=== PATIENT | female | born 1985 | race Caucasian/White ===

== ENCOUNTER 2017-06-16 16:45 | Emergency (ER) | payer MEDICAID | END 2017-06-16 17:20 | disposition home or self-care (01) | LOC: HOBED 16:45 | DX: Z34.90 Encounter for supervision of normal pregnancy, unspecified, unspecified trimester (principal) | CPT/HCPCS: 99281 ==

== ENCOUNTER 2017-09-26 02:40 | Inpatient (IN) | payer MEDICAID ==
[~2017-09-26] VITALS: Ht 175.3 cm; Wt 158.0 kg
[2017-09-26 03:09] VITALS: BP 131/61; PULSE 86; RESP 18; TEMP 98.9; O2SAT 98
[2017-09-26 08:14] LABS: AUTOMATED NEUTROPHIL # 9.9 TH/MM3 (1.8-7.7); BASOPHIL % 0.3 % (0.0-2.0); EOSINOPHIL # 0.1 TH/MM3 (0-0.4); EOSINOPHIL % 0.5 % (0.0-4.0); LYMPH % 13.7 % (9.0-44.0); LYMPHOCYTE # 1.7 TH/MM3 (1.0-4.8); MEAN CELL VOLUME 86.3 FL (80.0-100.0); MEAN CORPUSCULAR HEMOGLOBIN 29.6 PG (27.0-34.0); MEAN CORPUSCULAR HGB CONC 34.3 % (32.0-36.0); MEAN PLATELET VOLUME 8.3 FL (7.0-11.0); MONOCYTE # 0.9 TH/MM3 (0-0.9); NEUT % 78.5 % (16.0-70.0); PLATELET COUNT 305 TH/MM3 (150-450); RED BLOOD COUNT 3.71 MIL/MM3 (4.00-5.30); RED CELL DISTRIBUTION WIDTH 13.4 % (11.6-17.2); WHITE BLOOD COUNT 12.6 TH/MM3 (4.0-11.0)
[2017-09-26 08:37] LABS: BILIRUBIN, URINE NEG (NEG); BLOOD, URINE NEG (NEG); GLUCOSE,URINE NEG (NEG); KETONE, URINE NEG (NEG); MUCUS URINE FEW /lpf (OCC); NITRITE,URINE NEG (NEG); SQUAMOUS EPITHELIAL CELL URINE 2 /hpf (0-5); URINE COLOR YELLOW (YELLW/STRAW); URINE LEUKOCYTE ESTERASE TRACE (NEG)
[2017-09-26 08:38] LABS: BICARBONATE 23.9 MEQ/L (21.0-32.0); CREATININE 0.57 MG/DL (0.50-1.00)
--- NOTE | 2017-09-26 09:13 | PD ---
HPI Chief Complaint: Skin Problem Time Seen by Provider: 08:58 Travel History International Travel<30 days: No Contact w/Intl Traveler<30days: No Traveled to known affect area: No History of Present Illness HPI 31 y/o female presents with fever, chills and lower abdominal pain since her C- section on September 15 that when he [facility]. 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 She states this was her third and she's had one prior miscarriage and one . She denies any other specific concurrent complaints. Quality pain is cramping. Severity is moderate. She denies specific modifying factors. She denies any other concurrent complaints. Patient is breast-feeding [facility] Past Medical History Medical History: Denies Significant Hx Diminished Hearing: No Tetanus Vaccination: Unknown Influenza Vaccination: No ?: Not LMP: postpatum Past Surgical History Section: Yes (x2) Tonsillectomy: Yes (T&A) Social History Alcohol Use: Yes (occasionally) Tobacco Use: No Substance Use: No Allergies-Medications (Allergen,Severity, Reaction): Coded Allergies: No Known Allergies (Unverified , 09/26/17) Reported Meds & Prescriptions Reported Meds & Active Scripts Active No Active Prescriptions or Reported Medications Review of Systems Except as stated in HPI: all other systems reviewed are Neg Physical Exam Narrative GENERAL: 31 y/o female in no apparent distress SKIN: Patient has redness with associated warmth and swelling across her low transverse abdominal scar without active drainage HEAD: Atraumatic. Normocephalic. EYES: Pupils equal and round. No scleral icterus. No injection or drainage. ENT: No nasal bleeding or discharge. Mucous membranes pink and moist. NECK: Trachea midline. No JVD. CARDIOVASCULAR: Regular rate and rhythm. RESPIRATORY: No accessory muscle use. Clear to auscultation. Breath sounds equal bilaterally. GASTROINTESTINAL: Abdomen soft, tender over suprapubic area, nondistended. No rebound MUSCULOSKELETAL: No obvious deformities. No clubbing. No cyanosis. NEUROLOGICAL: Awake and alert. No obvious cranial nerve deficits. Motor grossly within normal limits. Normal speech. PSYCHIATRIC: Appropriate mood and affect; insight and judgment normal. Data Data Last Documented VS Vital Signs Date Time Temp Pulse Resp B/P (MAP) Pulse Ox O2 Delivery O2 Flow Rate FiO2 09/26/17 09:16 98.7 74 17 133/63 (86) 99 Room Air Orders Orders Complete Blood Count With Diff (09/26/17 07:25) Basic Metabolic Panel (Bmp) (09/26/17 07:25) Urinalysis - C+S If Indicated (09/26/17 07:25) Ct Abd/Pel W Iv Contrast(Rout) (09/26/17 ) Iohexol 350 Inj (Omnipaque 350 Inj) (09/26/17 10:16) Lidocai-Epi 1%-1:100,000 Inj (Xylocaine- (09/26/17 12:06) Admit Order (Ed Use Only) (09/26/17 12:07) Clindamycin Inj (Cleocin Inj) (09/26/17 12:15) Labs Laboratory Tests Test 09/26/17 07:51 09/26/17 08:08 White Blood Count 12.6 TH/MM3 Red Blood Count 3.71 MIL/MM3 Hemoglobin 11.0 GM/DL Hematocrit 32.0 % Mean Corpuscular Volume 86.3 FL Mean Corpuscular Hemoglobin 29.6 PG Mean Corpuscular Hemoglobin Concent 34.3 % Red Cell Distribution Width 13.4 % Platelet Count 305 TH/MM3 Mean Platelet Volume 8.3 FL Neutrophils (%) (Auto) 78.5 % Lymphocytes (%) (Auto) 13.7 % Monocytes (%) (Auto) 7.0 % Eosinophils (%) (Auto) 0.5 % Basophils (%) (Auto) 0.3 % Neutrophils # (Auto) 9.9 TH/MM3 Lymphocytes # (Auto) 1.7 TH/MM3 Monocytes # (Auto) 0.9 TH/MM3 Eosinophils # (Auto) 0.1 TH/MM3 Basophils # (Auto) 0.0 TH/MM3 CBC Comment DIFF FINAL Differential Comment Blood Urea Nitrogen 5 MG/DL Creatinine 0.57 MG/DL Random Glucose 91 MG/DL Calcium Level 9.0 MG/DL Sodium Level 140 MEQ/L Potassium Level 3.5 MEQ/L Chloride Level 107 MEQ/L Carbon Dioxide Level 23.9 MEQ/L Anion Gap 9 MEQ/L Estimat Glomerular Filtration Rate 123 ML/MIN Urine Color YELLOW Urine Turbidity CLEAR Urine pH 6.0 Urine Specific [place] 1.010 Urine Protein NEG mg/dL Urine Glucose (UA) NEG mg/dL Urine Ketones NEG mg/dL Urine Occult Blood NEG Urine Nitrite NEG Urine Bilirubin NEG Urine Urobilinogen 2.0 MG/DL Urine Leukocyte Esterase TRACE Urine WBC LESS THAN 1 /hpf Urine Squamous Epithelial Cells 2 /hpf Urine Mucus FEW /lpf Microscopic Urinalysis Comment CULT NOT INDICATED MDM Medical Decision Making Medical Screen Exam Complete: Yes Emergency Medical Condition: Yes Medical Record Reviewed: Yes (past history confirmed) Interpretation(s) CBC & BMP Diagram 09/26/17 07:51 Calcium Level 9.0 Last 24 hours Impressions Abdomen/Pelvis CT 09/26/17 0000 Signed Impressions: Service Date/Time: Tuesday, September 26, 2017 10:12 - CONCLUSION: 1. 19.6 x 5.7 x 6.2 cm fluid collection in the deep subcutaneous tissues of the lower abdomen. Findings could represent postoperative seroma or abscess. 2. Prominent endometrial stripe likely related to the recent state. CT findings characteristic of bilateral sacroiliitis. Jose Hagen MD Differential Diagnosis Abscess, cellulitis, wound check Narrative Course Will add on CT abdomen pelvis after discussion with OB hospitalist and reevaluate will discuss ct with ob patient agrees to bedside drainage and admission to hospital Physician Communication Physician Communication dr kang states to check CT and if has large abscess will need to be opened up if there is small or just cellulitis can likely go home on antibiotics dr rae will come see patient dr rae will drain at bedside and states to admit to her service, ok with clindamycin Diagnosis Primary Impression: Abdominal wall abscess Additional Impression: Status post Admitting Information Admitting Physician Requests: Admit Scripts No Active Prescriptions or Reported Meds Mela Ram MD Sep 26, 2017 09:13
[2017-09-26 09:16] VITALS: BP 133/63; PULSE 74; RESP 17; TEMP 98.7; O2SAT 99
[2017-09-26] MEDS ORDERED: IOHEXOL 350 MG/ML 10 ML VIAL (for RAD DIAG) IVCONTRAST ONE (10:16)
--- NOTE | 2017-09-26 10:34 | RADRPT ---
EXAM DATE/TIME: 09/26/2017 10:12 [place] COMPARISON: No previous studies available for comparison. INDICATIONS : Fever, swelling and clear discharge at suture site. section September 15, evaluate for abscess . IV CONTRAST: 75 cc Omnipaque 350 (iohexol) IV ORAL CONTRAST: No oral contrast ingested. RADIATION DOSE: 22.66 CTDIvol (mGy) ; Patient body habitus MEDICAL HISTORY : None SURGICAL HISTORY : section. ENCOUNTER: Initial ACUITY: 2 weeks PAIN SCALE: 7/10 LOCATION: Abdomen. TECHNIQUE: Volumetric scanning of the abdomen and pelvis was performed. Using automated exposure control and ad justment of the mA and/or kV according to patient size, radiation dose was kept as low as reasonably achievable to obtain optimal diagnostic quality images. DICOM format image data is available electro nically for review and comparison. FINDINGS: LOWER LUNGS: The visualized lower lungs are clear. LIVER: Homogeneous density without lesion. There is no dilation of the biliary tree. No calcified gallston es. SPLEEN: Normal size without lesion. PANCREAS: Within normal limits. KIDNEYS: Normal in size and shape. There is no mass, stone or hydronephrosis. ADRENAL GLANDS: Within normal limits. VASCULAR: There is no aortic aneurysm. BOWEL/MESENTERY: The stomach, small bowel, and colon demonstrate no acute abnormality. There is no free intraperitone al air or fluid. ABDOMINAL WALL: In the expected location of the patient's incision, there is a 19.6 x 5.7 x 6.2 cm fluid collection i n the subcutaneous tissues. This could represent seroma or abscess. RETROPERITONEUM: There is no lymphadenopathy. BLADDER: No wall thickening or mass. REPRODUCTIVE: Prominent endometrial stripe is likely limited to the recent state. INGUINAL: There is no lymphadenopathy or hernia. MUSCULOSKELETAL: Some degenerative changes in the lumbar spine with facet hypertrophy in the lower levels and lumbosac ral junction. Vacuum joint phenomenon in the SI joints bilaterally with SI joint sclerosis characteri stic of bilateral sacroiliitis. CONCLUSION: 1. 19.6 x 5.7 x 6.2 cm fluid collection in the deep subcutaneous tissues of the lower abdomen. Findin gs could represent postoperative seroma or abscess. 2. Prominent endometrial stripe likely related to the recent state. CT findings characteri stic of bilateral sacroiliitis. Jose Hagen MD on September 26, 2017 at 10:22 Board Certified Radiologist. This report was verified electronically.
[2017-09-26] MEDS ORDERED: LIDOCAINE 1%/EPINEPHrine 1:100,000 SOLN 30 ML VIAL ONE ×2 (12:06→16:06)
[2017-09-26] MEDS ORDERED: CLINDAMYCIN INJ 600 MG in SODIUM CHLORIDE 0.9% INJ 100 ML IV ONE (12:15)
[2017-09-26] MEDS ORDERED: ACETAMINOPHEN 325 MG TAB PO ONE (12:45)
[2017-09-26 12:50] VITALS: BP 141/67; PULSE 67; RESP 17; O2SAT 98
[2017-09-26] MEDS ORDERED: ONDANSETRON HCL 4 MG/2 ML VIAL IV PUSH ONE (13:00)
[2017-09-26] MEDS ORDERED: MORPHINE SULFATE 4 MG/ML INJ IV PUSH ONE (13:00)
--- NOTE | 2017-09-26 13:22 | HHI.HP ---
HPI Chief Complaint abdominal pain Date Seen: Sep 26, 2017 Time Seen: 12:30 Travel History International Travel<30 Days: No Contact w/Intl Traveler<30Days: No Known Affected Area: No History of Present Illness HPI Mrs. Correa is 31-year-old presenting to the ED ED today due to abdominal pain and fever. She gave to her son on 09/15 by at [facility] in [place]. She was discharged home on 09/17. She states that all was well until yesterday when she woke up with fever and chills. She did not take her temperature. However, she took some ibuprofen. She has also been having headaches since yesterday. Her surgical incision has also been painful. Is more painful on the left side. History Past Medical History Medical History: Denies Significant Hx Obstetric History Obstetric History 16 month old girl, delivery for breech presentation Past Surgical History Narrative Surgical 2 C-sections Tonsillectomy Allergies-Medications (Allergen,Severity, Reaction): Coded Allergies: No Known Allergies (Unverified , 09/26/17) Home Meds No Active Prescriptions or Reported Meds Review of Systems General / Constitutional: Fever, Chills Eyes: No: Blurred Vision HENT: Headaches Cardiovascular: No: Chest Pain or Discomfort Respiratory: No: Short of Breath Gastrointestinal: Nausea, Abdominal Pain, No: Vomiting Physical Exam Vital Signs Date Time Temp Pulse Resp B/P (MAP) Pulse Ox O2 Delivery O2 Flow Rate FiO2 09/26/17 12:50 67 17 141/67 (91) 98 Room Air 09/26/17 09:16 98.7 74 17 133/63 (86) 99 Room Air 09/26/17 03:09 98.9 86 18 131/61 (84) 98 Narrative GENERAL: Well-nourished, well-developed patient. SKIN: Warm and dry. HEAD: Normocephalic and atraumatic. EYES: No scleral icterus. No injection or drainage. CARDIOVASCULAR: Regular rate and rhythm without murmurs, gallops, or rubs. RESPIRATORY: Breath sounds equal bilaterally. No accessory muscle use. ABDOMEN/GI: Abdomen soft, tender at left lateral aspect of surgical incision. Right lateral aspect of incision open 0.5cm and draining serosanguineous foul smelling fluid. Mons pubis is erythematous, edematous, and indurated. EXTREMITIES: No cyanosis or edema. NEUROLOGICAL: Awake and alert. Motor and sensory grossly within normal limits. Normal speech. Caprini VTE Risk Assessment Caprini VTE Risk Assessment: Mod/High Risk (score >= 2) Caprini Risk Assessment Model Point Value = 1 Point Value = 2 Point Value = 3 Point Value = 5 Age 41-60 Minor surgery BMI > 25 kg/m2 Swollen legs Varicose veins or History of unexplained or recurrent spontaneous Oral contraceptives or hormone replacement Sepsis (< 1 month) Serious lung disease, including pneumonia (< 1 month) Abnormal pulmonary function Acute myocardial infarction Congestive heart failure (< 1 month) History of inflammatory bowel disease Medical patient at bed rest Age 61-74 Arthroscopic surgery Major open surgery (> 45 min) Laparoscopic surgery (> 45 min) Malignancy Confined to bed (> 72 hours) Immobilizing plaster cast Central venous access Age >= 75 History of VTE Family history of VTE Factor V Leiden Prothrombin [id number] Lupus anticoagulant Anticardiolipin antibodies Elevated serum homocysteine Heparin-induced thrombocytopenia Other congenital or acquired thrombophilia Stroke (< 1 month) Elective arthroplasty Hip, pelvis, or leg fracture Acute spinal cord injury (< 1 month) Prophylaxis Regimen Total Risk Factor Score Risk Level Prophylaxis Regimen 0-1 Low Early ambulation 2 Moderate Order ONE of the following: *Sequential Compression Device (SCD) *Heparin 5000 units SQ BID 3-4 Higher Order ONE of the following medications: *Heparin 5000 units SQ TID *Enoxaparin/Lovenox 40 mg SQ daily (WT < 150 kg, CrCl > 30 mL/min) *Enoxaparin/Lovenox 30 mg SQ daily (WT < 150 kg, CrCl > 10-29 mL/min) *Enoxaparin/Lovenox 30 mg SQ BID (WT < 150 kg, CrCl > 30 mL/min) AND/OR *Sequential Compression Device (SCD) 5 or more Highest Order ONE of the following medications: *Heparin 5000 units SQ TID (Preferred with Epidurals) *Enoxaparin/Lovenox 40 mg SQ daily (WT < 150 kg, CrCl > 30 mL/min) *Enoxaparin/Lovenox 30 mg SQ daily (WT < 150 kg, CrCl > 10-29 mL/min) *Enoxaparin/Lovenox 30 mg SQ BID (WT < 150 kg, CrCl > 30 mL/min) AND *Sequential Compression Device (SCD) Data Data Vital Signs Reviewed: Yes Orders Orders Complete Blood Count With Diff (09/26/17 07:25) Basic Metabolic Panel (Bmp) (09/26/17 07:25) Urinalysis - C+S If Indicated (09/26/17 07:25) Ct Abd/Pel W Iv Contrast(Rout) (09/26/17 ) Iohexol 350 Inj (Omnipaque 350 Inj) (09/26/17 10:16) Lidocai-Epi 1%-1:100,000 Inj (Xylocaine- (09/26/17 12:06) Admit Order (Ed Use Only) (09/26/17 12:07) Clindamycin Inj (Cleocin Inj) (09/26/17 12:15) Morphine Inj (Morphine Inj) (09/26/17 13:00) Ondansetron Inj (Zofran Inj) (09/26/17 13:00) Acetaminophen (Tylenol) (09/26/17 12:45) Wound Culture And Gram Stain (09/26/17 12:51) Labs Laboratory Tests Test 09/26/17 07:51 09/26/17 08:08 White Blood Count 12.6 Red Blood Count 3.71 Hemoglobin 11.0 Hematocrit 32.0 Mean Corpuscular Volume 86.3 Mean Corpuscular Hemoglobin 29.6 Mean Corpuscular Hemoglobin Concent 34.3 Red Cell Distribution Width 13.4 Platelet Count 305 Mean Platelet Volume 8.3 Neutrophils (%) (Auto) 78.5 Lymphocytes (%) (Auto) 13.7 Monocytes (%) (Auto) 7.0 Eosinophils (%) (Auto) 0.5 Basophils (%) (Auto) 0.3 Neutrophils # (Auto) 9.9 Lymphocytes # (Auto) 1.7 Monocytes # (Auto) 0.9 Eosinophils # (Auto) 0.1 Basophils # (Auto) 0.0 CBC Comment DIFF FINAL Differential Comment Blood Urea Nitrogen 5 Creatinine 0.57 Random Glucose 91 Calcium Level 9.0 Sodium Level 140 Potassium Level 3.5 Chloride Level 107 Carbon Dioxide Level 23.9 Anion Gap 9 Estimat Glomerular Filtration Rate 123 Urine Color YELLOW Urine Turbidity CLEAR Urine pH 6.0 Urine Specific [place] 1.010 Urine Protein NEG Urine Glucose (UA) NEG Urine Ketones NEG Urine Occult Blood NEG Urine Nitrite NEG Urine Bilirubin NEG Urine Urobilinogen 2.0 Urine Leukocyte Esterase TRACE Urine WBC LESS THAN 1 Urine Squamous Epithelial Cells 2 Urine Mucus FEW Microscopic Urinalysis Comment CULT NOT INDICATED Assessment/Plan Problem List: (1) Abdominal wall abscess ICD Codes: L02.211 - Cutaneous abscess of abdominal wall Status: Acute Plan: 31yo who is POD 10 from repeat C/S at [facility] in [place], [place]. CBC shows leukocytosis to 12.6. CT abdomen/pelvis shows 19.6x5.7x6.2cm fluid collection in the deep subcutaneous tissues of the lower abdomen. I&D conducted at the bedside showed an extensive abscess draining serosanguineous fluid and pus once incision was opened. (See Dr. Zazueta's procedure note) -Due to the size of the abscess it was originally decided to finish the I&D in the OR. However, upon examination 3 hours later the wound was improved. A second opinion was obtained with Dr. Mejia and it was decided that the wound will be repacked overnight q4h. -One dose of Clindamycin given in the ED -Will start broad spectrum coverage with Vancomycin and Zosyn 3.375gm q6h -Pharmacy consult for Vancomycin dosing -Blood cultures pending, were drawn after Clindamycin was given -Wound culture pending from bedside I&D -Will order AM CBC, CMP (2) FEN Status: Acute Plan: Fluids: LR @ maintenance of 200mls/hr Electrolytes: Monitor and replete as needed Nutrition: NPO DVT prophylaxis: Megan Orozco MD R1 Sep 26, 2017 13:22
[2017-09-26] MEDS ORDERED: Vancomycin Consult Pharmacy 1 EA OTHER SCH (15:00)
[2017-09-26] MEDS: PIPERACIL-TAZO 3.375 GM PREMIX 50 ML IV SCH ×2 (15:45→23:43)
[2017-09-26 16:59] VITALS: BP 117/74; PULSE 73; RESP 17; O2SAT 97
[2017-09-26] MEDS ORDERED: VANCOMYCIN INJ 2,000 MG in SODIUM CHLORID 0.9% 500 ML INJ 500 ML IV SCH (17:00)
--- NOTE | 2017-09-26 17:03 | HHI.PR ---
Subjective Remarks Progress Note from 1pm, draft was inadvertently not saved. The patient is a y/o P2 POD#11 s/p repeat C/S on 09/15/17. She presented to the ED with 1-2 days of not feeling well and drainage from the incision. The CT showed a large subcutaneous fluid collection. The patient was informed of the need to drain and explore the wound. We discussed possible drainage at the bedside versus surgical incision and drainage. The patient stated she preferred to avoid surgery if possible. We discussed the risks of bedside drainage, including but not limited to pain, infection, bleeding, injury to other organs or the fascia, failure to complete procedure, and need for further surgical exploration. On physical examination the surgical site is indurated with some erythema noted. The wound appeared to be approximately 2 cm open. The skin was prepped and draped with Betadine and approximately 2 cc of 1% lidocaine with 1% epinephrine was injected at the skin edges. The skin edges of the incision were opened with small scissors. Copious fluid extruded from the wound and the subcutaneous tissue was opened. The fascia palpated to be intact and without dehiscence. There was a copious amount of fluid that drained and infected appearing tissue was noted on the wound edges, so the recommendation was made to proceed with further surgical exploration. In the meantime, the wound was packed with dry Kerlix to further absorb infectious fluid. IV antibiotics were ordered and the patient will be admitted to our service. The patient was tentatively scheduled as an add-on procedure. All of her questions were answered. Objective Vital Signs Date Time Temp Pulse Resp B/P (MAP) Pulse Ox O2 Delivery O2 Flow Rate FiO2 09/26/17 14:46 16 09/26/17 14:46 16 09/26/17 12:50 67 17 141/67 (91) 98 Room Air 09/26/17 09:16 98.7 74 17 133/63 (86) 99 Room Air 09/26/17 03:09 98.9 86 18 131/61 (84) 98 I/O 09/25/17 09/25/17 09/25/17 09/26/17 09/26/17 09/26/17 07:00 15:00 23:00 07:00 15:00 23:00 Intake Total 104 ml Balance 104 ml Intake IV Total 104 ml Result Diagram: 09/26/17 0751 09/26/17 0751 Jen Zazueta MD Sep 26, 2017 17:03
[2017-09-26] MEDS ORDERED: SILVER NITR/POTASSIUM NITRATE APPLICATORS TOPICAL ONE (17:45)
--- NOTE | 2017-09-26 18:41 | HHI.PR ---
Subjective Remarks The patient is a y/o P2 POD #11 s/p repeat C/S on 09/15/17. She presented to the ED with 1-2 days of not feeling well and drainage from the incision. The CT showed a large subcutaneous fluid collection. The wound was explored and drained at the bedside however due to limited visibility and the extent/depth of the incision, the recommendation had been made to explore further in the operating room. Upon removal of the previously placed Kerlix, better visualization was obtained and the wound was able to be adequately visualized. The fascia was re-examined and noted to be without defect or dehiscence. The patient again stated her desire to avoid surgery if possible. The wound was repacked and subsequently reexamined with Dr. Wilder and there appears to be a good blood supply to the underlying tissue and does not appear to be evidence of necrotizing fasciitis at this time. The wound was repacked and will proceed with observation overnight, wound care, IV antibiotics, and an infectious disease and wound care consult in the a.m. The patient may be a candidate for a wound VAC. Objective Vital Signs Date Time Temp Pulse Resp B/P (MAP) Pulse Ox O2 Delivery O2 Flow Rate FiO2 09/26/17 17:20 09/26/17 16:59 73 17 117/74 (88) 97 Room Air 09/26/17 14:46 16 09/26/17 14:46 16 09/26/17 12:50 67 17 141/67 (91) 98 Room Air 09/26/17 09:16 98.7 74 17 133/63 (86) 99 Room Air 09/26/17 03:09 98.9 86 18 131/61 (84) 98 I/O 09/25/17 09/25/17 09/25/17 09/26/17 09/26/17 09/26/17 07:00 15:00 23:00 07:00 15:00 23:00 Intake Total 104 ml 50 ml Balance 104 ml 50 ml Intake IV Total 104 ml 50 ml Result Diagram: 09/26/17 0751 09/26/17 0751 Jen Zazueta MD Sep 26, 2017 18:41
[2017-09-26 20:00] VITALS: BP 110/53; PULSE 63; RESP 16; TEMP 98; O2SAT 98
[2017-09-26] MEDS: LACTATED RINGER'S 1000 ML INJ 1,000 ML IV SCH (20:05)
[2017-09-26] MEDS: MORPHINE SULFATE 4 MG/ML INJ IV PUSH PRN ×2 (20:05→22:28)
--- NOTE | 2017-09-26 23:11 | HHI.PR ---
Subjective Remarks The patient is a y/o P2 POD#11 s/p repeat C/S on 09/15/17. She presented to the ED with 1-2 days not feeling well and drainage from the incision. CT showed a large subcutaneous fluid collection which was drained and the wound explored and packed. The patient stated she prefers to avoid surgery if possible. The patient is given informed milligrams of morphine and the wound unpacked there appears to be less necrotic tissue than previous and the wound appears to have less moisture than prior. The wound was repacked which the patient tolerated well. We'll continue close observation and wound care. Objective Vital Signs Date Time Temp Pulse Resp B/P (MAP) Pulse Ox O2 Delivery O2 Flow Rate FiO2 09/26/17 20:00 98.0 63 16 110/53 (72) 98 09/26/17 18:45 09/26/17 16:59 73 17 117/74 (88) 97 Room Air 09/26/17 14:46 16 09/26/17 14:46 16 09/26/17 12:50 67 17 141/67 (91) 98 Room Air 09/26/17 09:16 98.7 74 17 133/63 (86) 99 Room Air 09/26/17 03:09 98.9 86 18 131/61 (84) 98 I/O 09/26/17 09/26/17 09/26/17 09/27/17 09/27/17 09/27/17 07:00 15:00 23:00 07:00 15:00 23:00 Intake Total 104 ml 50 ml Balance 104 ml 50 ml Intake IV Total 104 ml 50 ml Result Diagram: 09/26/17 0751 09/26/17 0751 Jen Zazueta MD Sep 26, 2017 23:11
[2017-09-26] MEDS ORDERED: hydrOXYzine PAMOATE 25 MG CAP PO PRN (23:45)
[2017-09-26] MEDS ORDERED: ZOLPIDEM TARTRATE 5 MG TAB PO PRN (23:45)
[2017-09-27] VITALS: BP 119/58; PULSE 62; RESP 16; TEMP 98.2; O2SAT 97
[2017-09-27] MEDS: MORPHINE SULFATE 4 MG/ML INJ IV PUSH PRN ×3 (02:14→15:00)
[2017-09-27] MEDS: LACTATED RINGER'S 1000 ML INJ 1,000 ML IV SCH ×3 (03:25→22:34)
[2017-09-27] MEDS: oxyCODONE/ACETAMINOPHEN 5 MG/325 MG TAB PO PRN ×2 (03:25→16:32)
[2017-09-27] MEDS: ONDANSETRON HCL 4 MG/2 ML VIAL IV PUSH PRN ×2 (03:25→17:57)
[2017-09-27 03:30] VITALS: BP 124/62; PULSE 61; RESP 18; TEMP 98.3; O2SAT 97
[2017-09-27] MEDS: PIPERACIL-TAZO 3.375 GM PREMIX 50 ML IV SCH ×3 (05:53→17:52)
[2017-09-27 06:00] LABS: AUTOMATED NEUTROPHIL # 5.6 TH/MM3 (1.8-7.7); BASOPHIL # 0.1 TH/MM3 (0-0.2); BASOPHIL % 0.6 % (0.0-2.0); EOSINOPHIL # 0.2 TH/MM3 (0-0.4); EOSINOPHIL % 2.6 % (0.0-4.0); HEMATOCRIT 27.9 % (35.0-46.0); HEMOGLOBIN 9.5 GM/DL (11.6-15.3); LYMPHOCYTE # 2.5 TH/MM3 (1.0-4.8); MEAN CELL VOLUME 87.4 FL (80.0-100.0); MEAN CORPUSCULAR HEMOGLOBIN 29.7 PG (27.0-34.0); MEAN PLATELET VOLUME 8.9 FL (7.0-11.0); MONO % 9.2 % (0.0-8.0); MONOCYTE # 0.9 TH/MM3 (0-0.9); NEUT % 60.6 % (16.0-70.0); PLATELET COUNT 270 TH/MM3 (150-450); RED BLOOD COUNT 3.19 MIL/MM3 (4.00-5.30); RED CELL DISTRIBUTION WIDTH 13.3 % (11.6-17.2); WHITE BLOOD COUNT 9.2 TH/MM3 (4.0-11.0)
[2017-09-27 06:24] LABS: ALBUMIN 2.3 GM/DL (3.4-5.0); ALKALINE PHOSPHATASE 83 U/L (45-117); ALT (GPT) 14 U/L (10-53); AST (GOT) 6 U/L (15-37); BICARBONATE 25.2 MEQ/L (21.0-32.0); BLOOD UREA NITROGEN 7 MG/DL (7-18); CHLORIDE 108 MEQ/L (98-107); CREATININE 0.65 MG/DL (0.50-1.00); GLOMERULAR FILTRATION RATE 106 ML/MIN (>89); GLUCOSE,RANDOM 80 MG/DL (74-106); SODIUM (NA) 142 MEQ/L (136-145); TOTAL BILIRUBIN ADULT 0.4 MG/DL (0.2-1.0)
[2017-09-27 08:53] VITALS: BP 95/50; PULSE 64; RESP 18; TEMP 98; O2SAT 98
--- NOTE | 2017-09-27 09:14 | HHI.FF ---
Face to Face Verification Diagnosis: (1) Abdominal wall abscess (2) Status post Home Health Nursing Order: Medical education Signs/symptoms of disease process Medication education-adverse effect Wound care and dressing changes Nursing assessment with vital signs IV medication administration Instructions: Patient requires a wound vac at home with dressing changes three times a week on Mondays, Wednesdays, and Fridays. I have seen patient Hailey Correa on 09/27/17. My clinical findings support the need for the requested home health care services because: Ltd mobility - disease progression Limited ability to care for self Need for psychosocial assistance Infection w/ risk of complications Injectable med education/admin I certify that my clinical findings support that this patient is homebound because: Unsafe to leave home unassisted Need for psychosocial assistance Unable to use public transportation 3 times a week for 6 weeks Ara Goldstein MD Sep 27, 2017 09:14 Megan Martinez MD R1 Sep 28, 2017 12:12
--- NOTE | 2017-09-27 09:21 | HHI.PR ---
Subjective Remarks Patient is doing well this morning. She feels pain at her wound site but is well -controlled with medication. No fevers or chills overnight. Denies chest pain or shortness of breath. She ate without issues the previous day but had not eaten this morning because she was NPO. Objective - Vital Signs Date Time Temp Pulse Resp B/P (MAP) Pulse Ox O2 Delivery O2 Flow Rate FiO2 09/27/17 08:53 98.0 64 18 95/50 (65) 98 09/26/17 16:59 Room Air Result Diagram: 09/27/17 0450 09/27/17 0450 Objective Remarks GENERAL: Obese female, lying in bed, in NAD SKIN: Warm and dry. HEAD: Normocephalic. EYES: No scleral icterus. No injection or drainage. NECK: Supple, trachea midline. No JVD or lymphadenopathy. CARDIOVASCULAR: Regular rate and rhythm, holosystolic murmur best heard in the aortic area. No radiation to the carotids. RESPIRATORY: Breath sounds equal bilaterally. No accessory muscle use. GASTROINTESTINAL: Abdomen soft, nondistended, good bowel sounds. Expected tenderness in the area of abdominal wound. Soft, has a horizontal incision in suprapubic area, open, with packing, no necrotic tissue, no odors. 19x7cm horizontal wound in the suprapubic region. Tissue appears debrided with viable tissue present although some areas below need further debridement. The wound tunnels and tracks left about 4cm and about 2-3 cm to the right. Five rolls of kerlix packing were placed. MUSCULOSKELETAL: No cyanosis, or edema. BACK: Nontender without obvious deformity. No CVA tenderness. A/P Problem List: (1) Abdominal wall abscess ICD Code: L02.211 - Cutaneous abscess of abdominal wall Status: Acute Assessment & Plan: -Daily dressing changes q8h -Continue IV antibiotics -Morphine IV for dressing changes -Percocet for pain -Infectious disease on board -Wound care consult pending - will need wound vacuum (2) Status post ICD Code: Z98.891 - History of uterine scar from previous surgery Status: Acute Assessment & Plan: -Continue routine care -Assist with pumping as needed (3) Holosystolic murmur ICD Code: R01.1 - Cardiac murmur, unspecified Assessment & Plan: -Patient unaware -Could be -related but will check ECHO to rule out endocarditis (4) FEN Status: Acute Assessment & Plan: -Oral fluids -Monitor electrolytes daily and replace as needed -Regular adult diet -SCDs Discharge Planning Possibly in the next 1-2 days Ara Goldstein MD Sep 27, 2017 09:21
[2017-09-27] MEDS: VANCOMYCIN INJ 2,000 MG in SODIUM CHLORID 0.9% 500 ML INJ 500 ML IV SCH ×2 (10:17→22:17)
[2017-09-27] MEDS ORDERED: BISACODYL 10 MG SUPP RECTAL PRN (10:45)
[2017-09-27] MEDS ORDERED: LACTULOSE SYRUP 20 GM/30 ML CUP PO PRN (10:45)
[2017-09-27] MEDS ORDERED: MAGNESIUM HYDROXIDE SUSP 30 ML CUP PO PRN (10:45)
[2017-09-27] MEDS ORDERED: SENNOSIDES 8.6 MG TAB PO PRN (10:45)
[2017-09-27] MEDS: DOCUSATE SODIUM 50 MG/SENNA 8.6 MG TAB PO SCH ×2 (12:44→22:27)
--- NOTE | 2017-09-27 13:31 | PD.CONS ---
History of Present Illness Service Infectious disease Consult Requested By Dr Zazueta Reason for Consult Evaluate patient with abdominal wound infection status post section Primary Care Physician No Primary Care Physician Diagnoses: History of Present Illness Patient seen and examined. Records reviewed. Patient is a 31-year-old female, presented to the hospital complaining of abdominal pain and fever. She is just recently had a section at [facility] in [place] last September 15, and was discharged on September 17. She was apparently doing well up until the day prior to admission when she woke up and she had fever and chills. She also noted abdominal pain over her incision, more on the left side. She presented to the hospital, and she was found to have an abdominal wound infection. She did not want any formal surgery, and her incision was opened at bedside and was being packed yesterday. There was no evidence of necrotic tissue. She has not had any fever. Her white count was 12,000 on admission and it's down to normal. Currently her pain is under control. Blood cultures are negative, and the wound culture is reported as gram -negative parish. Patient is currently on vancomycin and Zosyn. Infectious disease consultation has been requested to evaluate the patient. Review of Systems Constitutional: COMPLAINS OF: Fever, Chills Eyes: DENIES: Eye pain Ears, nose, mouth, throat: DENIES: Nasal discharge, Oral lesions, Throat pain, Ear Pain, Sinus Pain Respiratory: DENIES: Cough, Sputum production, Shortness of breath Cardiovascular: DENIES: Chest pain, Palpitations, Syncope, Dyspnea on Exertion Gastrointestinal: COMPLAINS OF: Abdominal pain, DENIES: Diarrhea, Nausea, Vomiting, Difficulty Swallowing Genitourinary: DENIES: Urinary frequency, Urgency, Dysuria Musculoskeletal: DENIES: Joint pain, Muscle aches, Joint Swelling Integumentary: DENIES: Rash Neurologic: DENIES: Localized weakness Psychiatric: DENIES: Hallucinations Past Family Social History Allergies: Coded Allergies: No Known Allergies (Unverified , 09/26/17) Past Medical History No significant medical history 16 month old girl, delivery for breech presentation Past Surgical History 2 C-sections Tonsillectomy Active Ordered Medications Current Medications Medications (Trade) Dose Ordered Sig/Virgie Route Start Time Stop Time Status Last Admin Pharmacy Profile Note 0 ml @ 0 mls/hr UNSCH OTHER 3/20/18 15:00 Lactated Ringer's 1,000 ml @ 200 mls/hr Q5H IV 09/26/17 15:45 09/27/17 03:25 (Morphine Inj) 4 mg Q3H PRN IV PUSH 09/26/17 18:00 09/27/17 08:36 (Zofran Inj) 4 mg Q6HR PRN IV PUSH 09/26/17 18:00 09/27/17 03:25 (Percocet 5-325 Mg) 1 tab Q4H PRN PO 09/26/17 23:45 (Percocet 5-325 Mg) 2 tab Q4H PRN PO 09/26/17 23:45 09/27/17 03:25 (Ambien) 5 mg HS PRN PO 09/26/17 23:45 (Vistaril) 75 mg Q6H PRN PO 09/26/17 23:45 Piperacillin Sod/ Tazobactam Sod 50 ml @ 100 mls/hr Q6H IV 09/27/17 06:00 09/27/17 12:45 Vancomycin HCl 2000 mg/Sodium Chloride 520 ml @ 250 mls/hr Q12H IV 09/27/17 09:00 09/27/17 10:17 Miscellaneous Information SPECIFIC LAB TO BE DRAWN:VANCOMYCIN TROUGH DATE TO... ONCE ONCE .XX 09/28/17 08:45 09/28/17 08:46 (Delores-Colace) 1 tab BID PO 09/27/17 10:45 09/27/17 12:44 (Milk Of Magnesia Liq) 30 ml Q12H PRN PO 09/27/17 10:45 (Senokot) 17.2 mg Q12H PRN PO 09/27/17 10:45 (Dulcolax Supp) 10 mg DAILY PRN RECTAL 09/27/17 10:45 (Lactulose Liq) 30 ml DAILY PRN PO 09/27/17 10:45 (Miralax) 17 gm DAILY PO 09/28/17 09:00 Family History Noncontributory Social History No smoking Occasional alcohol No illicit drugs Physical Exam Vital Signs Vital Signs Date Time Temp Pulse Resp B/P (MAP) Pulse Ox O2 Delivery O2 Flow Rate FiO2 09/27/17 08:53 98.0 64 18 95/50 (65) 98 09/27/17 03:30 98.3 61 18 124/62 (82) 97 09/27/17 00:00 98.2 62 16 119/58 (78) 97 09/26/17 20:00 98.0 63 16 110/53 (72) 98 09/26/17 18:45 09/26/17 16:59 73 17 117/74 (88) 97 Room Air 09/26/17 14:46 16 09/26/17 14:46 16 Physical Exam GENERAL: Patient is an obese, well-developed female, awake and alert, not in respiratory distress. SKIN: Warm and dry. No generalized rash, no ecchymoses and no evidence of embolic lesions. HEAD: Atraumatic. Normocephalic. No temporal wasting, or tenderness. EYES: [place] conjunctiva. No petechia or hemorrhage. Pupils equal, round and reactive to light. Extraocular movements full and intact. No scleral icterus. No injection or drainage. EARS, NOSE AND THROAT: Nose without bleeding or purulent nasal discharge. No sinus tenderness. Mucous membranes pink and moist. No oral lesions noted. No exudate. No oral thrush. NECK: Trachea midline. Supple and not tender, no meningeal signs CARDIOVASCULAR: Regular rate and rhythm. No murmurs, rubs or gallops heard RESPIRATORY: Clear to auscultation. Breath sounds equal bilaterally. No rales , wheezing or rhonchi ABDOMEN: Soft, has a horizontal incision in suprapubic area, open, with packing , no necrotic tissue, no odors. There is mild induration above but no redness. There is more indurayion and erythema on the mons. The abdomen is non-tender , nondistended, and no guarding or rebound. Bowel sounds present and normoactive. EXTREMITIES: No clubbing, cyanosis, or edema.No joint effusion, has good ROM. No calf tenderness. Well perfused and warm. NEUROLOGICAL: Awake and alert. Cranial nerves grossly intact. Motor grossly within normal limits. PSYCHIATRIC: Normal affect, calm and cooperative. LINE: No evidence of infection Laboratory Laboratory Tests Test 09/27/17 04:50 White Blood Count 9.2 Red Blood Count 3.19 Hemoglobin 9.5 Hematocrit 27.9 Mean Corpuscular Volume 87.4 Mean Corpuscular Hemoglobin 29.7 Mean Corpuscular Hemoglobin Concent 34.0 Red Cell Distribution Width 13.3 Platelet Count 270 Mean Platelet Volume 8.9 Neutrophils (%) (Auto) 60.6 Lymphocytes (%) (Auto) 27.0 Monocytes (%) (Auto) 9.2 Eosinophils (%) (Auto) 2.6 Basophils (%) (Auto) 0.6 Neutrophils # (Auto) 5.6 Lymphocytes # (Auto) 2.5 Monocytes # (Auto) 0.9 Eosinophils # (Auto) 0.2 Basophils # (Auto) 0.1 CBC Comment DIFF FINAL Differential Comment Blood Urea Nitrogen 7 Creatinine 0.65 Random Glucose 80 Total Protein 6.0 Albumin 2.3 Calcium Level 8.0 Alkaline Phosphatase 83 Aspartate Amino Transf (AST/SGOT) 6 Alanine Aminotransferase (ALT/SGPT) 14 Total Bilirubin 0.4 Sodium Level 142 Potassium Level 3.4 Chloride Level 108 Carbon Dioxide Level 25.2 Anion Gap 9 Estimat Glomerular Filtration Rate 106 Date/Time Source Procedure Growth Status 09/26/17 15:25 Blood Peripheral Aerobic Blood Culture - Preliminary NO GROWTH IN 1 DAY Resulted 09/26/17 15:25 Blood Peripheral Anaerobic Blood Culture - Preliminary NO GROWTH IN 1 DAY Resulted 09/26/17 12:58 Wound Abdomen Gram Stain - Final Resulted 09/26/17 12:58 Wound Culture - Preliminary Gram Negative Parish Resulted Result Diagram: 09/27/17 0450 09/27/17 0450 Imaging RADIOLOGY STUDIES/FILMS REVIEWED Abdomen/Pelvis CT 09/26/17 0000 Signed Impressions: Service Date/Time: Tuesday, September 26, 2017 10:12 - CONCLUSION: 1. 19.6 x 5.7 x 6.2 cm fluid collection in the deep subcutaneous tissues of the lower abdomen. Findings could represent postoperative seroma or abscess. 2. Prominent endometrial stripe likely related to the recent state. CT findings characteristic of bilateral sacroiliitis. Jose Hagen MD Assessment and Plan Assessment and Plan IMPRESSION Sepsis on admission,, due to adbominal wound infection Abdominal wound infection, S/P repeat LTCS - incision is open and has packing - C/S with GNR preliminary RECOMMENDATION Follow C/S Continue Vanco Continue Zosyn De-escalate antibiotics once cultures finalize Wound care, and consider doing wound VAC for her large open abdominal wound Monitor progress Further recommendation to follow once workup and cultures are finalized Thank you for this consultation I will be off September 28 Other ID Pradeep covering in my absence Discussed Condition With Explained plan to the patient Lilia Etienne MD Sep 27, 2017 13:31
[2017-09-27] MEDS ORDERED: POTASSIUM CHLORIDE 20 MEQ CONTROLLED RELEASE TAB PO ONE (15:15)
--- NOTE | 2017-09-27 16:12 | PD.WCN.NOT ---
Wound Consult Description: Received consult for evaluation of wound management of Pfannenstiel incision received from Doctor Jen Zazueta. Communicated with: LEIDY Mcgraw 1st floor mother baby and Doctor Juaquin. Call placed to Doctor Ara Almanzar for orders Recommendation: Please cleanse wound with normal saline and pat dry Wound care will apply wound VAC dressing on with settings at 125 mm/hg low continuous suction Dressing to be changed on Monday 10/02 and then M-W- Additional Information: Patient seen on first floor mother/ baby unit. Patient seen with Carmenza SIGALA and service writer.Patient was premedicated with IV morphine before wound assessment. Removed dressing and packing to lower medial abdominal area to reveal open wound. Wound measures ~1cm x 19cm x 10cm. Wound bed presents with ~80% red granulation tissue and ~20% adipose tissue. One suture noted to superior aspect of wound wall. Wound bed has scant sero-sanguinous drainage when cleansed with normal saline and gauze pad. Periwound presents without erythema and induration. Wound margins sharp and well defined. Carmenza POOL packed wound with saline moistened rolled gauze and covered with dry 4x4 gauze. Dressing was then secured with ABD pad and paper tape. Skin barrier film (skin prep) was applied to Periwound and before securing dressing with paper tape. Audrey Simmons Sep 27, 2017 16:12
[2017-09-27 16:28] VITALS: BP 130/84; PULSE 73; RESP 18; TEMP 97.7
[2017-09-27 21:33] VITALS: BP 133/68; PULSE 70; RESP 17; TEMP 98.4
[2017-09-28] MEDS: PIPERACIL-TAZO 3.375 GM PREMIX 50 ML IV SCH ×3 (00:55→12:50)
[2017-09-28] MEDS: ONDANSETRON HCL 4 MG/2 ML VIAL IV PUSH PRN ×3 (01:31→21:30)
[2017-09-28] MEDS: MORPHINE SULFATE 4 MG/ML INJ IV PUSH PRN ×2 (01:31→09:14)
[2017-09-28] MEDS ORDERED: PHARMACY ORDERED LAB ONE ×2 (04:45→08:45)
[2017-09-28] MEDS: oxyCODONE/ACETAMINOPHEN 5 MG/325 MG TAB PO PRN ×2 (05:36→19:48)
[2017-09-28 06:05] LABS: AUTOMATED NEUTROPHIL # 6.8 TH/MM3 (1.8-7.7); BASOPHIL # 0.1 TH/MM3 (0-0.2); BASOPHIL % 0.6 % (0.0-2.0); EOSINOPHIL # 0.3 TH/MM3 (0-0.4); EOSINOPHIL % 2.7 % (0.0-4.0); HEMATOCRIT 28.6 % (35.0-46.0); HEMOGLOBIN 9.7 GM/DL (11.6-15.3); LYMPH % 15.6 % (9.0-44.0); LYMPHOCYTE # 1.5 TH/MM3 (1.0-4.8); MEAN CELL VOLUME 86.5 FL (80.0-100.0); MEAN CORPUSCULAR HEMOGLOBIN 29.3 PG (27.0-34.0); MEAN CORPUSCULAR HGB CONC 33.8 % (32.0-36.0); MEAN PLATELET VOLUME 8.7 FL (7.0-11.0); MONO % 9.8 % (0.0-8.0); MONOCYTE # 0.9 TH/MM3 (0-0.9); NEUT % 71.3 % (16.0-70.0); PLATELET COUNT 288 TH/MM3 (150-450); RED CELL DISTRIBUTION WIDTH 13.5 % (11.6-17.2); WHITE BLOOD COUNT 9.6 TH/MM3 (4.0-11.0)
[2017-09-28 06:31] LABS: BICARBONATE 24.9 MEQ/L (21.0-32.0); CALCIUM 8.5 MG/DL (8.5-10.1); CREATININE 1.07 MG/DL (0.50-1.00)
--- NOTE | 2017-09-28 07:10 | HHI.PR ---
Subjective Remarks Patient is doing well this morning. She feels pain at her wound site but is well -controlled with medication. No fevers or chills overnight. Denies chest pain or shortness of breath. She ate food without issues. Her was at bedside and they both had questions about wound dressing changes at home. Objective - Vital Signs Date Time Temp Pulse Resp B/P (MAP) Pulse Ox O2 Delivery O2 Flow Rate FiO2 09/27/17 21:33 98.4 70 17 133/68 (89) 09/27/17 08:53 98 09/26/17 16:59 Room Air Result Diagram: 09/28/17 0511 09/28/17 0511 Objective Remarks GENERAL: Obese female, lying in bed, in NAD SKIN: Warm and dry. HEAD: Normocephalic. EYES: No scleral icterus. No injection or drainage. NECK: Supple, trachea midline. No JVD or lymphadenopathy. CARDIOVASCULAR: Regular rate and rhythm, holosystolic murmur best heard in the aortic area - not very obvious today. RESPIRATORY: Breath sounds equal bilaterally. No accessory muscle use. GASTROINTESTINAL: Abdomen soft, nondistended, good bowel sounds. Expected tenderness in the area of abdominal wound. Soft, has a horizontal [id number] wound in the suprapubic area, open, with packing, no necrotic tissue, no odors. MUSCULOSKELETAL: No cyanosis, or edema. BACK: Nontender without obvious deformity. A/P Problem List: (1) Abdominal wall abscess ICD Code: L02.211 - Cutaneous abscess of abdominal wall Status: Acute Assessment & Plan: -Daily dressing changes q8h -Continue IV antibiotics -Morphine IV for dressing changes -Percocet for pain -Gram negative kim growing on wound culture -Blood cultures negative x 1 day -Infectious disease on board -Wound care on board - pt to have wound vacuum placed today (2) Status post ICD Code: Z98.891 - History of uterine scar from previous surgery Status: Acute Assessment & Plan: -Continue routine care -Assist with pumping as needed (3) Holosystolic murmur ICD Code: R01.1 - Cardiac murmur, unspecified Assessment & Plan: -Patient unaware -ECHO results pending (4) FEN Status: Acute Assessment & Plan: -Oral fluids -Monitor electrolytes daily and replace as needed -Regular adult diet -SCDs Discharge Planning Possibly in the next 1-2 days Patient would need help with wound dressing changes at home or in a wound care clinic She does not have a PCP but needs one Ara Goldstein MD Sep 28, 2017 07:10
[2017-09-28] MEDS: DOCUSATE SODIUM 50 MG/SENNA 8.6 MG TAB PO SCH ×2 (08:10→19:48)
[2017-09-28] MEDS: POLYETHYLENE GLYCOL 17 GM PKG PO SCH (08:10)
[2017-09-28 08:15] VITALS: BP 121/56; PULSE 81; RESP 16; TEMP 98.6; O2SAT 100
[2017-09-28] MEDS: VANCOMYCIN INJ 2,000 MG in SODIUM CHLORID 0.9% 500 ML INJ 500 ML IV SCH (09:08)
--- NOTE | 2017-09-28 10:31 | PD.WCN.NOT ---
Wound Consult Recommendation: Please cleanse wound with normal saline and pat dry Wound care will apply wound VAC dressing on with settings at 125 mm/hg low continuous suction Dressing to be changed on Monday 10/02 and then - Neg Pressure Wound Therapy Wound Location Wound Location: Midline lower abdomen incision Wound Description Length: 1.5cm Width: 19.0cm Depth: 9.7cm Wound bed appearance: 50% beefy red granular tissue 50% Adipose tissue Periwound appearance: Unremarkable Settings Suction: 125 mmHg Intensity: Low Other Information: Windowpaned, Mushroomed Foam type: Black Number of pieces: 1 Additonal Information Patient was seen today by show card writer for wound vac placement to midline lower abdomen prior incision.Dressing removed wound cleansed with normal saline pat dry.Skin prep applied to periwound then window paned with drape.Sponge applied to wound base making contact with all tissue.Mushroom cap applied to track pad.Suction started @125mmHg low continuos suction.Patient tolerated vac placement well. Esau Ryan [facility] Sep 28, 2017 10:31
[2017-09-28 12:45] VITALS: BP 135/64; PULSE 69; RESP 16; TEMP 98.4
[2017-09-28] MEDS: LACTATED RINGER'S 1000 ML INJ 1,000 ML IV SCH ×2 (12:50→19:53)
--- NOTE | 2017-09-28 15:29 | ECHRPT ---
Indication: CONCLUSIONS The left ventricular systolic function is normal with an estimated ejection fraction in the range 65 %. Normal left ventricular size. Mild concentric left ventricular hypertrophy. No regional wall motion abnormalities are present. Trace mitral valve regurgitation. There is trace tricuspid valve regurgitation. The estimated pulmonary arterial pressure is 33 mmHg. BP: 95 / 50 HR: 64 Rhythm: Sinus MEASUREMENTS (Male / Female) Normal Values Technical Quality:Excellent 2D ECHO LV Diastolic Diameter PLAX 4.7 cm 4.2 - 5.9 / 3.9 - 5.3 cm LV Systolic Diameter PLAX 3.3 cm IVS Diastolic Thickness 1.2 cm 0.6 - 1.0 / 0.6 - 0.9 cm LVPW Diastolic Thickness 1.3 cm 0.6 - 1.0 / 0.6 - 0.9 cm LV Relative Wall Thickness 0.5 RV Internal Dim ED PLAX 2.3 cm LVOT Diameter 2.2 cm LA Systolic Diameter LX 4.8 cm 3.0 - 4.0 / 2.7 - 3.8 cm M-MODE Aortic Root Diameter MM 2.0 cm LA Systolic Diameter MM 4.4 cm LA Ao Ratio MM 2.2 AV Cusp Separation MM 2.1 cm DOPPLER AV Peak Velocity 174.5 cm/s AV Peak Gradient 12.2 mmHg LVOT Peak Velocity 122.0 cm/s LVOT Peak Gradient 6.0 mmHg AV Area Cont Eq pk 2.7 cm MV Area PHT 4.6 cm Mitral E Point Velocity 121.0 cm/s Mitral A Point Velocity 54.8 cm/s Mitral E to A Ratio 2.2 LV E' Lateral Velocity 15.0 cm/s Mitral E to LV E' Lateral Ratio 8.1 LV E' Septal Velocity 12.7 cm/s Mitral E to LV E' Septal Ratio 9.5 TR Peak Velocity 240.0 cm/s TR Peak Gradient 23.0 mmHg Right Atrial Pressure 10.0 mmHg Pulmonary Artery Systolic Pressu 33.0 mmHg Right Ventricular Systolic Press 33.0 mmHg PV Peak Velocity 128.0 cm/s PV Peak Gradient 6.6 mmHg FINDINGS LEFT VENTRICLE The left ventricular systolic function is normal with an estimated ejection fraction in the range 65 %. Normal left ventricular size. Mild concentric left ventricular hypertrophy. No regional wall motion abnormalities are present. RIGHT VENTRICLE Normal right ventricular size and systolic function. LEFT ATRIUM The left atrial size is normal. RIGHT ATRIUM The right atrial size is normal. ATRIAL SEPTUM Normal atrial septal thickness without atrial level shunting by limited color doppler interrogation. AORTA The aortic root and proximal ascending aorta are normal in size on limited imaging. MITRAL VALVE Structurally normal mitral valve. Trace mitral valve regurgitation. AORTIC VALVE Trileaflet aortic valve. No aortic valve stenosis or regurgitation. TRICUSPID VALVE Structurally normal tricuspid valve. There is trace tricuspid valve regurgitation. The estimated pulmonary arterial pressure is 33 mmHg. PULMONARY VALVE No pulmonary valve regurgitation or stenosis. VESSELS The inferior vena cava is normal in size. PERICARDIUM No pericardial effusion. Mabel Fernandez MD, FACC Edited by: special education administrator special education administrator (Electronically Signed) Final Date:27 September 2017 19:14 Amended: 28 September 2017 15:28
[2017-09-28 16:00] VITALS: BP 138/65; PULSE 67; RESP 18; TEMP 97.8
[2017-09-28 20:45] VITALS: BP 125/73; PULSE 70; RESP 18; TEMP 97.9
[2017-09-29] MEDS: PIPERACIL-TAZO 3.375 GM PREMIX 50 ML IV SCH ×3 (00:28→12:00)
[2017-09-29] MEDS: LACTATED RINGER'S 1000 ML INJ 1,000 ML IV SCH ×3 (03:45→13:45)
[2017-09-29] MEDS: POLYETHYLENE GLYCOL 17 GM PKG PO SCH (07:39)
[2017-09-29] MEDS: DOCUSATE SODIUM 50 MG/SENNA 8.6 MG TAB PO SCH ×2 (07:39→19:56)
[2017-09-29] MEDS: oxyCODONE/ACETAMINOPHEN 5 MG/325 MG TAB PO PRN ×2 (07:40→19:56)
[2017-09-29 07:51] LABS: HEMATOCRIT 27.3 % (35.0-46.0); HEMOGLOBIN 9.2 GM/DL (11.6-15.3); MEAN CELL VOLUME 86.7 FL (80.0-100.0); MEAN CORPUSCULAR HEMOGLOBIN 29.2 PG (27.0-34.0); MEAN CORPUSCULAR HGB CONC 33.6 % (32.0-36.0); MEAN PLATELET VOLUME 8.6 FL (7.0-11.0); PLATELET COUNT 273 TH/MM3 (150-450); RED BLOOD COUNT 3.15 MIL/MM3 (4.00-5.30); RED CELL DISTRIBUTION WIDTH 13.4 % (11.6-17.2); WHITE BLOOD COUNT 8.4 TH/MM3 (4.0-11.0)
--- NOTE | 2017-09-29 08:09 | HHI.PR ---
Subjective Remarks Patient is doing well this morning. She feels pain at her wound site but is well -controlled with medication. No fevers or chills overnight. Denies chest pain or shortness of breath. She has nausea and is not able to eat and drink well but is okay. She would like to go home as soon as possible. Objective - Vital Signs Date Time Temp Pulse Resp B/P (MAP) Pulse Ox O2 Delivery O2 Flow Rate FiO2 09/28/17 20:45 97.9 70 18 125/73 (90) 09/28/17 08:15 100 09/26/17 16:59 Room Air Result Diagram: 09/29/17 0658 09/28/17 0511 Objective Remarks GENERAL: Obese female, lying in bed, in NAD SKIN: Warm and dry. HEAD: Normocephalic. EYES: No scleral icterus. No injection or drainage. NECK: Supple, trachea midline. No JVD or lymphadenopathy. CARDIOVASCULAR: Regular rate and rhythm RESPIRATORY: Breath sounds equal bilaterally. No accessory muscle use. GASTROINTESTINAL: Abdomen soft, nondistended, good bowel sounds. Expected tenderness in the area of abdominal wound. Soft, has a horizontal [id number] wound in the suprapubic area, packed, wound vacuum in place draining serosanguineous fluid. MUSCULOSKELETAL: No cyanosis, or edema. BACK: Nontender without obvious deformity. A/P Problem List: (1) Abdominal wall abscess ICD Code: L02.211 - Cutaneous abscess of abdominal wall Status: Acute Assessment & Plan: -Wound vacuum inplace, replace dressing MWF -Wound care on board -Continue IV antibiotics - vancomycin on hold due to ELEANOR -Transition to oral antibiotics today -Morphine IV for dressing changes -Percocet for pain -Morganella morganii growing on wound culture -Blood cultures negative x 2 days -Infectious disease on board (2) ELEANOR (acute kidney injury) ICD Code: N17.9 - Acute kidney failure, unspecified Assessment & Plan: -Creatinine increased to 1.44 today from 1.07 on the previous day -Vancomycin on hold -Will administer 1 NS normal saline bolus -Repeat BMP at 1500 (3) Status post ICD Code: Z98.891 - History of uterine scar from previous surgery Status: Acute Assessment & Plan: -Continue routine care -Assist with pumping as needed (4) Holosystolic murmur ICD Code: R01.1 - Cardiac murmur, unspecified Assessment & Plan: -ECHO significant for EF of 65%, trace tricuspid regurgitation, Mild concentric left ventricular hypertrophy, and trace mitral valve regurgitation -Patient informed (5) FEN Status: Acute Assessment & Plan: -Oral fluids -Monitor electrolytes daily and replace as needed -Regular adult diet -SCDs Discharge Planning Possibly today pending ID recommendations and resolution of ELEANOR Patient to be discharged home with home health nursing for wound care When she gets a PCP, she can be referred to the [facility] wound care clinic with Dr. Weir She would need to follow up with [facility] where she had her performed Discussed with Ara Kim MD Sep 29, 2017 08:09
[2017-09-29 08:19] LABS: BICARBONATE 26.8 MEQ/L (21.0-32.0); CALCIUM 8.1 MG/DL (8.5-10.1); CREATININE 1.44 MG/DL (0.50-1.00)
[2017-09-29 08:25] VITALS: BP 133/66; PULSE 61; RESP 18; TEMP 98.3; O2SAT 98
[2017-09-29] MEDS ORDERED: SODIUM CHLOR 0.9% 1000 ML INJ 1,000 ML IV ONE (08:30)
[2017-09-29] MEDS: ONDANSETRON HCL 4 MG/2 ML VIAL IV PUSH PRN (09:35)
[2017-09-29] MEDS ORDERED: PERI PO (10:28)
[2017-09-29] MEDS ORDERED: OXYC1TAB63 PO (10:28)
[2017-09-29] MEDS ORDERED: POLY17S PO (12:03)
--- NOTE | 2017-09-29 12:48 | HHI.IDPN ---
Subjective Subjective Remarks ID X cover for Dr Etienne Pt's chart reviewed 31 yo sp C section on September 15 developpped large abscess 2/2 Morganella morganii I to am/clav S leva, bactrim doing well afebril;e Pumping mild for Antibiotics zosyn Allergies: Coded Allergies: No Known Allergies (Unverified , 09/26/17) Objective . Vital Signs Date Time Temp Pulse Resp B/P (MAP) Pulse Ox O2 Delivery O2 Flow Rate FiO2 09/29/17 08:25 98.3 61 18 133/66 (88) 98 09/28/17 20:45 97.9 70 18 125/73 (90) 09/28/17 16:00 97.8 67 18 138/65 (89) 09/28/17 12:45 98.4 69 16 135/64 (87) . Laboratory Tests Test 09/28/17 05:11 09/29/17 06:58 White Blood Count 9.6 TH/MM3 8.4 TH/MM3 Red Blood Count 3.30 MIL/MM3 3.15 MIL/MM3 Hemoglobin 9.7 GM/DL 9.2 GM/DL Hematocrit 28.6 % 27.3 % Mean Corpuscular Volume 86.5 FL 86.7 FL Mean Corpuscular Hemoglobin 29.3 PG 29.2 PG Mean Corpuscular Hemoglobin Concent 33.8 % 33.6 % Red Cell Distribution Width 13.5 % 13.4 % Platelet Count 288 TH/MM3 273 TH/MM3 Mean Platelet Volume 8.7 FL 8.6 FL Neutrophils (%) (Auto) 71.3 % Lymphocytes (%) (Auto) 15.6 % Monocytes (%) (Auto) 9.8 % Eosinophils (%) (Auto) 2.7 % Basophils (%) (Auto) 0.6 % Neutrophils # (Auto) 6.8 TH/MM3 Lymphocytes # (Auto) 1.5 TH/MM3 Monocytes # (Auto) 0.9 TH/MM3 Eosinophils # (Auto) 0.3 TH/MM3 Basophils # (Auto) 0.1 TH/MM3 CBC Comment DIFF FINAL Differential Comment Laboratory Tests Test 09/28/17 05:11 09/29/17 06:58 Blood Urea Nitrogen 9 MG/DL 10 MG/DL Creatinine 1.07 MG/DL 1.44 MG/DL Random Glucose 87 MG/DL 77 MG/DL Calcium Level 8.5 MG/DL 8.1 MG/DL Sodium Level 143 MEQ/L 144 MEQ/L Potassium Level 3.9 MEQ/L 3.6 MEQ/L Chloride Level 109 MEQ/L 109 MEQ/L Carbon Dioxide Level 24.9 MEQ/L 26.8 MEQ/L Anion Gap 9 MEQ/L 8 MEQ/L Estimat Glomerular Filtration Rate 59 ML/MIN 42 ML/MIN Microbiology Date/Time Source Procedure Growth Status 09/26/17 15:25 Blood Peripheral Aerobic Blood Culture - Preliminary NO GROWTH IN 3 DAYS Resulted 09/26/17 15:25 Blood Peripheral Anaerobic Blood Culture - Preliminary NO GROWTH IN 3 DAYS Resulted 09/26/17 15:18 Blood Peripheral Aerobic Blood Culture - Preliminary NO GROWTH IN 3 DAYS Resulted 09/26/17 15:18 Blood Peripheral Anaerobic Blood Culture - Preliminary NO GROWTH IN 3 DAYS Resulted 09/26/17 12:58 Wound Abdomen Gram Stain - Final Complete 09/26/17 12:58 Wound Culture - Final Morganella Morganii Complete Imaging Last Impressions Abdomen/Pelvis CT 09/26/17 0000 Signed Impressions: Service Date/Time: Tuesday, September 26, 2017 10:12 - CONCLUSION: 1. 19.6 x 5.7 x 6.2 cm fluid collection in the deep subcutaneous tissues of the lower abdomen. Findings could represent postoperative seroma or abscess. 2. Prominent endometrial stripe likely related to the recent state. CT findings characteristic of bilateral sacroiliitis. Jose Hagen MD Physical Exam GENERAL: Patient is an obese, well-developed female, awake and alert, not in respiratory distress. SKIN: Warm and dry. No generalized rash, no ecchymoses and no evidence of embolic lesions. EYES: Iva conjunctiva. No scleral icterus. No injection or drainage. EARS, NOSE AND THROAT: moist mucosae No oral thrush. CARDIOVASCULAR: Regular rate and rhythm. RESPIRATORY: unlaboured respirations ABDOMEN: Soft, VAC in place There is mild induration above but no redness. There is no indurayion or erythema on the mons. The abdomen is non-tender, nondistended, and no guarding or rebound. . EXTREMITIES: mild b/l thigh trace - 1+ edema.No joint effusion, has good ROM. No calf tenderness. Well perfused and warm. NEUROLOGICAL: Awake and alert. Cranial nerves grossly intact. Motor grossly within normal limits. PSYCHIATRIC: Normal affect, calm and cooperative. Assessment & Plan Remarks IMPRESSION Sepsis on admission,, due to adbominal wound infection Abdominal wound infection Morganella, S/P repeat LTCS - incision is open and has packing Levaquin/Bactrim - only oral options , but will require doscarding of the pumped milk Pt does not want to interrupt brest feeding , preferred to get IV RECOMMENDATION Anuj Rai CFTZX at home to complete 10-14 days of abx cont w ound care, and consider doing wound VAC for her large open abdominal wound Monitor progress dw Dr Triston Sheriff,Criselda Brink MD Sep 29, 2017 12:48
--- NOTE | 2017-09-29 12:52 | HHI.FF ---
Infusion Therapy Location of Infusion Therapy: Home Health Care IV Infusion Order Patient Information Patient Weight 154.5 kg Diagnosis: Coded Allergies: No Known Allergies (Unverified , 09/26/17) Administer Medication Ceftriaxone 2 grams IV q 24 hours Start Treatment: Sep 30, 2017 Stop Treatment: Oct 07, 2017 Additional Information Venous access: Other (midline) Additional Instructions [x] Peripheral flush and dressing changes per protocol [x] Implanted port and central offline editor: * Implanted port: 10 ml Normal Saline followed by 5 ml Heparin 100 units/ml Heparin flush after each use and monthly to maintain. [] May leave port accessed during therapy. [] May leave peripheral site accessed for duration of therapy. [x] If patient has SOB or respiratory distress, check oxygen saturation. If less than 90% or clinical signs of respiratory distress, administer oxygen at 2 L/min. via nasal cannula and notify physician. [x] Anaphylaxis/Reaction orders: * Stop infusion. * Keep IV line open with saline flush. * Notify physician. * Monitor vital signs every 15 minutes until symptoms resolve. * Check Oxygen saturation; Oxygen at 2 L/min. via nasal cannula if less than 90% or clinical signs of respiratory distress. * Administer diphenhydramine (Benadryl) 25 mg IV STAT, (unless patient has received as pre-med). May repeat once, if necessary. * Solu-Cortef 250 mg IVP over 30-60 seconds, use 100 mg vials for each dissolution. * Epinephrine (1mg/1 ml) 0.3 mg subcutaneously or IVP now with any signs of respiratory distress. * Check with physician for new additional pre-med orders if patient is re- challenged or re-treated. [x] May remove PICC line when treatment complete, after confirming with Physician. [x] If the patient is admitted to the hospital, the ED, or transferred via [facility] , complete transfer form including medication reconciliation order sheet. Laboratory Tests Weekly Labs: CBC w/diff, Creatinine, LFT's (Hepatic function test) Criselda Sheriff MD Sep 29, 2017 12:52
[2017-09-29] MEDS ORDERED: CEFT2INJ IM (12:55)
[2017-09-29] MEDS ORDERED: EPIN1INJ21 SQ (12:55)
[2017-09-29] MEDS ORDERED: EPIN1INJ21 IV PUSH (12:55)
[2017-09-29] MEDS ORDERED: SOLU250I IV PUSH (12:55)
[2017-09-29] MEDS ORDERED: VANCOMYCIN INJ 1,500 MG in SODIUM CHLORID 0.9% 500 ML INJ 500 ML IV SCH (13:00)
[2017-09-29] MEDS: cefTRIAXone 2,000 MG/NS 100 ML IV SCH ×2 (14:18)
[2017-09-29 19:21] LABS: BICARBONATE 27.3 MEQ/L (21.0-32.0); CALCIUM 8.5 MG/DL (8.5-10.1); CREATININE 1.46 MG/DL (0.50-1.00)
[2017-09-29 20:00] VITALS: BP 116/67; PULSE 74; RESP 18; TEMP 98.1; O2SAT 98
[2017-09-30] MEDS: oxyCODONE/ACETAMINOPHEN 5 MG/325 MG TAB PO PRN ×2 (02:20→14:21)
[2017-09-30 07:00] VITALS: BP 121/63; PULSE 68; RESP 16; TEMP 98.2; O2SAT 94
--- NOTE | 2017-09-30 08:08 | HHI.PR ---
Subjective Remarks Patient is doing well this morning. She feels pain around her incision site but is well-controlled with medication. The medication makes her nauseous. She had no fevers or chills overnight. Denies chest pain or shortness of breath. Complains of back pain due to lying in bed although she spent some time sitting up in the chair yesterday. She is wondering if she can go home today. Objective - Vital Signs Date Time Temp Pulse Resp B/P (MAP) Pulse Ox O2 Delivery O2 Flow Rate FiO2 09/30/17 07:00 98.2 68 16 121/63 (82) 94 09/26/17 16:59 Room Air Result Diagram: 09/29/17 0658 09/29/17 1800 Objective Remarks GENERAL: Obese female, lying in bed, in NAD SKIN: Warm and dry. HEAD: Normocephalic. EYES: No scleral icterus. No injection or drainage. NECK: Supple, trachea midline. No JVD or lymphadenopathy. CARDIOVASCULAR: Regular rate and rhythm RESPIRATORY: Breath sounds equal bilaterally. No accessory muscle use. GASTROINTESTINAL: Abdomen soft, nondistended, good bowel sounds. Expected tenderness in the area of abdominal wound. Soft, has a horizontal [id number] wound in the suprapubic area, packed, wound vacuum in place draining serosanguineous fluid. MUSCULOSKELETAL: No cyanosis, or edema. BACK: Nontender without obvious deformity. Medications and IVs Midline placed on 09/29/2017 A/P Problem List: (1) Abdominal wall abscess ICD Code: L02.211 - Cutaneous abscess of abdominal wall Status: Acute Assessment & Plan: -Wound vacuum in place, replace dressing MWF -Wound care on board -Switched continue Rocephin 2 g IV every 24 started on 09/29/2017 -Patient to be discharged home on Rocephin IV with home health care. Midline placed yesterday. -Morphine IV for dressing changes -Percocet for pain -Blood cultures negative x 3 days -Infectious disease on board (2) ELEANOR (acute kidney injury) ICD Code: N17.9 - Acute kidney failure, unspecified Assessment & Plan: -Creatinine 1.46 on previous day. Morning labs pending -Continue to monitor. Keep hydrated. 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 Weir She would need to follow up with [facility] where she had her performed Discussed with Ara Lima MD Sep 30, 2017 08:08
[2017-09-30] MEDS: DOCUSATE SODIUM 50 MG/SENNA 8.6 MG TAB PO SCH ×2 (08:14→21:00)
[2017-09-30] MEDS: POLYETHYLENE GLYCOL 17 GM PKG PO SCH (08:15)
[2017-09-30 11:02] LABS: HEMATOCRIT 28.9 % (35.0-46.0); HEMOGLOBIN 9.8 GM/DL (11.6-15.3); MEAN CELL VOLUME 87.5 FL (80.0-100.0); MEAN CORPUSCULAR HEMOGLOBIN 29.6 PG (27.0-34.0); MEAN CORPUSCULAR HGB CONC 33.8 % (32.0-36.0); PLATELET COUNT 287 TH/MM3 (150-450); RED BLOOD COUNT 3.31 MIL/MM3 (4.00-5.30); RED CELL DISTRIBUTION WIDTH 13.3 % (11.6-17.2); WHITE BLOOD COUNT 7.1 TH/MM3 (4.0-11.0)
[2017-09-30 11:17] LABS: BICARBONATE 30.1 MEQ/L (21.0-32.0); CALCIUM 8.4 MG/DL (8.5-10.1); CREATININE 1.39 MG/DL (0.50-1.00)
[2017-09-30 11:30] VITALS: BP 133/75; PULSE 54; RESP 18; TEMP 97.5
[2017-09-30] MEDS: cefTRIAXone 2,000 MG/NS 100 ML IV SCH ×2 (14:21)
[2017-09-30 16:20] VITALS: BP 133/71; PULSE 45; RESP 18; TEMP 97.7; O2SAT 96
[2017-09-30 16:35] VITALS: BP 148/81; PULSE 48; RESP 20; TEMP 98.2; O2SAT 96
--- NOTE | 2017-09-30 19:19 | EKG ---
Date Performed: 09/30/2017 Time Performed: 16:56:44 PTAGE: 31 years EKG: SINUS BRADYCARDIA BORDERLINE ECG NO PREVIOUS TRACING DOCTOR: La Santana Interpretating Date/Time 09/30/2017 19:17:06
[2017-09-30 20:41] VITALS: BP 141/75; PULSE 60; RESP 18; TEMP 97.7
[2017-09-30 23:45] VITALS: BP 144/78; PULSE 49; RESP 20; TEMP 97.9; O2SAT 100
[2017-10-01] MEDS: oxyCODONE/ACETAMINOPHEN 5 MG/325 MG TAB PO PRN (00:05)
[2017-10-01] MEDS ORDERED: PHARMACY ORDERED LAB ONE (00:45)
[2017-10-01 07:44] VITALS: BP 143/70; PULSE 43; RESP 18; TEMP 97.8; O2SAT 95
[2017-10-01] MEDS: POLYETHYLENE GLYCOL 17 GM PKG PO SCH (08:41)
[2017-10-01] MEDS: DOCUSATE SODIUM 50 MG/SENNA 8.6 MG TAB PO SCH (08:41)
--- NOTE | 2017-10-01 09:29 | HHI.PR ---
Subjective Remarks Patient seen and examined this morning. No acute events overnight. Complains of some nausea overnight, but no vomiting. Doing well this morning. Abdominal soreness when she walks around. Denies any fever/chills, chest pain, SOB, leg pain/swelling. Urinating well. Objective - Vital Signs Date Time Temp Pulse Resp B/P (MAP) Pulse Ox O2 Delivery O2 Flow Rate FiO2 10/01/17 07:44 97.8 43 18 143/70 (94) 95 Result Diagram: 09/30/17 1011 09/30/17 1011 Objective Remarks GENERAL: Obese female, lying in bed, in NAD SKIN: Warm and dry. CARDIOVASCULAR: Regular rate and rhythm RESPIRATORY: Breath sounds equal bilaterally. No accessory muscle use. GASTROINTESTINAL: Abdomen soft, nondistended, good bowel sounds. Expected tenderness in the area of abdominal wound. Soft, has a horizontal [id number] wound in the suprapubic area, packed, wound vacuum in place draining serosanguineous fluid. MUSCULOSKELETAL: No cyanosis, or edema. BACK: Nontender without obvious deformity. A/P Problem List: (1) Abdominal wall abscess ICD Code: L02.211 - Cutaneous abscess of abdominal wall Status: Acute Assessment & Plan: -Wound vacuum in place, replace dressing MWF -Wound care on board -Continue Rocephin 2 g IV every 24 started on 09/29/2017 -Patient to be discharged home on Rocephin IV with home health care. Midline placed. 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 When she gets a PCP, she can be referred to the [facility] wound [facility] clinic with Dr. Weir She needs to follow up with [facility] where she had her performed Daryl Ackerman MD Oct 01, 2017 09:28
[2017-10-01 12:56] VITALS: BP 131/71; PULSE 39; RESP 18; TEMP 97.6; O2SAT 98
[2017-10-01] MEDS ORDERED: SIMETHICONE 80 MG CHEWABLE TAB PO ONE (14:30)
--- NOTE | 2017-10-01 15:16 | RADRPT ---
EXAM DATE/TIME: 10/01/2017 14:09 [facility] COMPARISON: No previous studies available for comparison. INDICATIONS : Bilateral leg swelling. MEDICAL HISTORY : Migraine. Anxiety. SURGICAL HISTORY : Tonsillectomy. section. Adenoidectomy. ENCOUNTER: Initial ACUITY: 1 day PAIN SCORE: 0/10 LOCATION: Bilateral legs. TECHNIQUE: Venous ultrasound of the left and right leg was performed from the inguinal ligament t o the proximal calf. Real-time, color Doppler and spectral tracing, compression and augmentation josy hniques were used. FINDINGS: RIGHT LEG: There is normal compressibility of the deep venous system from the inguinal region to the proximal calf. No echogenic clot is seen in the lumen of the common femoral, femoral, popliteal, and posterior tibial veins. There is a normal response of the venous system to proximal and distal augmentation and respiration. LEFT LEG: There is normal compressibility of the deep venous system from the inguinal region to t he proximal calf. No echogenic clot is seen in the lumen of the common femoral, femoral, popliteal, and posterior tibial veins. There is a normal response of the venous system to proximal and distal a ugmentation and respiration. CONCLUSION: Negative for deep venous thrombosis. Vishal Lopez MD FACR on October 01, 2017 at 15:12 Board Certified Radiologist. This report was verified electronically.
--- NOTE | 2017-10-01 15:33 | RADRPT ---
EXAM DATE/TIME: 10/01/2017 15:17 [facility] COMPARISON: No previous studies available for comparison. INDICATIONS : Shortness of breath, light headed, and low heart rate for 2 days. MEDICAL HISTORY : None. SURGICAL HISTORY : Tonsillectomy. section. Adenoidectomy. ENCOUNTER: Initial ACUITY: 2 days PAIN SCORE: 0/10 LOCATION: Bilateral chest FINDINGS: The lungs are clear. The heart is minimally enlarged. The pulmonary vascularity is normal. There is n o evidence for infiltrate or failure. The portion of the bony skeleton visualized is unremarkable. CONCLUSION: Compensated cardiomegaly otherwise negative . Vishal Lopez MD FACR on October 01, 2017 at 15:30 Board Certified Radiologist. This report was verified electronically.
[2017-10-01 15:48] LABS: AUTOMATED NEUTROPHIL # 5.1 TH/MM3 (1.8-7.7); BASOPHIL # 0.1 TH/MM3 (0-0.2); BASOPHIL % 0.9 % (0.0-2.0); EOSINOPHIL # 0.2 TH/MM3 (0-0.4); EOSINOPHIL % 3.1 % (0.0-4.0); HEMATOCRIT 29.9 % (35.0-46.0); LYMPH % 23.3 % (9.0-44.0); LYMPHOCYTE # 1.8 TH/MM3 (1.0-4.8); MEAN CELL VOLUME 86.3 FL (80.0-100.0); MEAN CORPUSCULAR HEMOGLOBIN 28.8 PG (27.0-34.0); MEAN CORPUSCULAR HGB CONC 33.4 % (32.0-36.0); MEAN PLATELET VOLUME 8.7 FL (7.0-11.0); MONO % 7.1 % (0.0-8.0); MONOCYTE # 0.6 TH/MM3 (0-0.9); NEUT % 65.6 % (16.0-70.0); PLATELET COUNT 306 TH/MM3 (150-450); RED BLOOD COUNT 3.47 MIL/MM3 (4.00-5.30); RED CELL DISTRIBUTION WIDTH 13.6 % (11.6-17.2); WHITE BLOOD COUNT 7.8 TH/MM3 (4.0-11.0)
--- NOTE | 2017-10-01 15:48 | HHI.FPPN ---
Addendum to progress note ADDENDUM Reason for addendum: Additonal documentation Additional information Called by nurse regarding patient. Dr. Washington had been called earlier regarding pt's bradycardia. Had heart rate of 39 on vitals. Otherwise, vitals stable. Pt complained of some chest pressure, that did change with breathing. Pt had been assessed previously and labs/imaging had been ordered. Upon arrival, pt was sitting in bed. States her chest pressure resolved. Denies any history of low heart rate in the past. Denies any past medical history. She states she is very anxious about everything going on. Otherwise, denies any fever/chills, headache , blurry vision, SOB, leg pain/swelling. Some dizziness, especially when she is walking around. Gen: NAD, lying in bed, tearful CV: Bradycardic. Holosystolic murmur presents as previously discovered Chest: mild tenderness to palpation in mid-sternum Lungs: CTAB Ext: no edema/tenderness 31 y/o female post-op admitted for wound infection. Pt with recurring bradycardia episodes and some chest pressure. Other vitals stable. Suspect anxiety at this time vs med effects EKG shows sinus bradycardia, consistent with previous US b/l lower extremities negative for DVT -CXR ordered -CBC, CMP to rule out electrolyte abnormality -Hold opioids -May benefit from anxiolytic -Continue to monitor vitals Daryl Ackerman MD Oct 01, 2017 15:48
[2017-10-01 16:00] VITALS: BP 149/72; PULSE 37; RESP 18; TEMP 97; O2SAT 100
[2017-10-01] MEDS ORDERED: ACETAMINOPHEN 325 MG TAB PO PRN (16:00)
[2017-10-01 16:06] LABS: ALBUMIN 2.7 GM/DL (3.4-5.0); AST (GOT) 14 U/L (15-37); BICARBONATE 26.1 MEQ/L (21.0-32.0); BLOOD UREA NITROGEN 13 MG/DL (7-18); CALCIUM 8.4 MG/DL (8.5-10.1); CHLORIDE 107 MEQ/L (98-107); CREATININE 1.29 MG/DL (0.50-1.00); GLOMERULAR FILTRATION RATE 48 ML/MIN (>89); GLUCOSE,RANDOM 94 MG/DL (74-106); SODIUM (NA) 143 MEQ/L (136-145)
[2017-10-01 16:08] LABS: ALT (GPT) 14 U/L (10-53)
[2017-10-01 16:09] LABS: ALKALINE PHOSPHATASE 84 U/L (45-117); TOTAL BILIRUBIN ADULT 0.3 MG/DL (0.2-1.0)
[2017-10-01] MEDS: cefTRIAXone 2,000 MG/NS 100 ML IV SCH ×2 (16:12)
[2017-10-01 20:00] VITALS: BP 142/76; PULSE 47; RESP 18; TEMP 98.5; O2SAT 100
[2017-10-02 00:30] VITALS: BP 143/82; PULSE 49; RESP 16; TEMP 98.4; O2SAT 99
[2017-10-02 02:30] VITALS: BP 152/87; PULSE 50
[2017-10-02 06:00] VITALS: BP 140/72; PULSE 51; RESP 16; TEMP 98; O2SAT 100
[2017-10-02] MEDS ORDERED: LACTATED RINGER'S 1000 ML INJ 1,000 ML IV SCH (06:33)
[2017-10-02] MEDS ORDERED: LACTATED RINGER'S 1000 ML INJ 1,000 ML IV PRN (06:33)
--- NOTE | 2017-10-02 06:33 | PD.OB.DELI ---
Weeks gestation: 40 Pt started active labor?: Yes Medical induction of labor?: No Artificial rupture of membrane: No Anesthesia: None Episiotomy: None Vaginal Delivery: Normal, Spontaneous Presentation: Occiput anterior Nuchal Cord: None Delayed cord clamping (45 sec): Yes : Female Delivery date: Oct 02, 2017 Delivery time: 06:12 One Minute : 9 Five Minute : 9 Weight: 8'10" Placenta: Spontaneous delivery, Intact Laceration: Vaginal laceration, 1 deg Repair: Vicryl running Estimated blood loss: 500cc Additional Information pt. presented to ed. checked by nursing and found to be complete. pt. then transferred to labor room and delivered spontaneously by nursing. placenta and repair done by dr. washington. Reza Washington Jr., MD Oct 02, 2017 06:33
[2017-10-02] MEDS ORDERED: IBUPROFEN 800 MG TAB PO PRN (06:45)
[2017-10-02] MEDS ORDERED: OXYTOCIN 30 UNITS-500ML PREMIX 500 ML IV ONE (06:45)
[2017-10-02] MEDS ORDERED: CITRIC ACID-SODIUM CITRATE LIQ 30 ML UDC PO SCH (06:45)
[2017-10-02] MEDS ORDERED: WITCH HAZEL 50%/GLYCERIN 12.5% 40 PAD JAR TOPICAL PRN (06:45)
[2017-10-02] MEDS ORDERED: ACETAMINOPHEN 325 MG TAB PO PRN (06:45)
[2017-10-02] MEDS ORDERED: OXYTOCIN 30 UNITS-500ML PREMIX 500 ML IV SCH (06:45)
[2017-10-02] MEDS ORDERED: LIDOCAINE HCL 1% 50 ML VIAL INFIL PRN (06:45)
[2017-10-02] MEDS ORDERED: LIDOCAINE HCL 1% 50 ML VIAL I-DERMAL PRN (06:45)
[2017-10-02] MEDS ORDERED: oxyCODONE/ACETAMINOPHEN 5 MG/325 MG TAB PO PRN (06:45)
[2017-10-02] MEDS ORDERED: SODIUM CHLORID 0.9% 500 ML INJ 500 ML IV PRN (06:45)
[2017-10-02] MEDS ORDERED: ALUMINUM/MAGNESIUM/SIMETH 30 ML CUP PO PRN (06:45)
[2017-10-02] MEDS ORDERED: ONDANSETRON ODT 4 MG TAB PO PRN (06:45)
[2017-10-02] MEDS ORDERED: ZOLPIDEM TARTRATE 5 MG TAB PO PRN (06:45)
[2017-10-02] MEDS ORDERED: BENZOCAINE 20% TOPICAL SPRAY 60 ML CAN TOPICAL PRN (06:45)
[2017-10-02] MEDS ORDERED: DOCUSATE SODIUM 50 MG/SENNA 8.6 MG TAB PO PRN (06:45)
[2017-10-02] MEDS ORDERED: MINERAL OIL 10 ML VIAL TOPICAL PRN (06:45)
[2017-10-02] MEDS ORDERED: SODIUM CHLORIDE 0.9% FLUSH 10 ML FLUSH IV FLUSH PRN (06:45)
[2017-10-02] MEDS ORDERED: SODIUM CHLOR 0.9% 1000 ML INJ 1,000 ML IV PRN (06:53)
[2017-10-02 07:30] VITALS: BP 151/79; PULSE 39; RESP 16; TEMP 97.9; O2SAT 97
--- NOTE | 2017-10-02 08:10 | HHI.PR ---
Subjective Remarks Patient seen and examined this morning. She states that she is doing well. She is no longer feeling any chest pressure. Not feeling lightheaded or dizzy. She is eating and drinking well. She is also ambulating. She has had a bowel movement. Feeling a little nauseous, but no vomiting. Her pain is well controlled. Objective - Vital Signs Date Time Temp Pulse Resp B/P (MAP) Pulse Ox O2 Delivery O2 Flow Rate FiO2 10/02/17 07:30 97.9 39 16 151/79 (103) 97 Result Diagram: 10/01/17 1530 10/01/17 1530 Objective Remarks GENERAL: Obese female, lying in bed, in NAD SKIN: Warm and dry. CARDIOVASCULAR: Regular rate and rhythm RESPIRATORY: Breath sounds equal bilaterally. No accessory muscle use. GASTROINTESTINAL: Abdomen soft, nondistended, good bowel sounds. Expected tenderness in the area of abdominal wound. Soft, has a horizontal [id number] wound in the suprapubic area, packed, wound vacuum in place draining serosanguineous fluid (460ml). MUSCULOSKELETAL: No cyanosis, or edema. BACK: Nontender without obvious deformity. A/P Problem List: (1) Abdominal wall abscess ICD Code: L02.211 - Cutaneous abscess of abdominal wall Status: Acute Assessment & Plan: -Wound vacuum in place, replace dressing MWF, to be replaced this morning -Wound care on board -Continue Rocephin 2 g IV every 24 started on 09/29/2017 -Patient to be discharged home on Rocephin IV with home health care. Midline placed. 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 surgery Status: Acute Assessment & Plan: Continue post-op care Pain control as needed (3) Bradycardia ICD Code: R00.1 - Bradycardia, unspecified Status: Acute Assessment & Plan: Patient experiencing bradycardia in the 30s-50s since 10/01 Chest x-ray on 10/01 show compensated cardiomegaly Echocardiogram on 09/28 showed concentric left ventricular hypertrophy EKG on 10/01 showed sinus bradycardia Lower extremity ultrasound was negative for DVT -Will consult cardiology for any further recommendations as to the origin of this bradycardia -BNP is pending Discharge Planning Discharge upon approval of home health nursing for wound care and IV infusion plus wound vac. When she gets a PCP with [facility], she can be referred to the [facility] wound care clinic with Dr. Weir She needs to follow up with [facility] where she had her performed. Megan Martinez MD R1 Oct 02, 2017 08:10
[2017-10-02 08:50] LABS: BICARBONATE 27.5 MEQ/L (21.0-32.0); CALCIUM 8.3 MG/DL (8.5-10.1); CREATININE 1.22 MG/DL (0.50-1.00)
[2017-10-02] MEDS ORDERED: SODIUM CHLORIDE 0.9% FLUSH 10 ML FLUSH IV FLUSH SCH (09:00)
[2017-10-02] MEDS: POLYETHYLENE GLYCOL 17 GM PKG PO SCH (09:00)
[2017-10-02] MEDS: DOCUSATE SODIUM 50 MG/SENNA 8.6 MG TAB PO SCH ×2 (09:00→21:00)
[2017-10-02] MEDS: IBUPROFEN 600 MG TAB PO PRN ×3 (09:20→20:55)
[2017-10-02] MEDS: ACETAMINOPHEN 500 MG CPLT PO PRN ×3 (09:20→20:55)
--- NOTE | 2017-10-02 11:10 | PD.CONS ---
HPI Consult Requested By Primary Care Physician No Primary Care Physician History of Present Illness 31-year-old female with no significant past medical history. The patient had a 09/15 in [place], and originally presented 09/26 here with abdominal pain and fever. The patient was found to have abscess from her site and was admitted and treated for such. 3 days ago the patient had some anterior chest discomfort. The patient is very large breasted and has been without a bra for several days as well as breast-feeding and the patient feels this is what was causing the chest discomfort. Echocardiogram was performed which was essentially unremarkable. 2 EKGs were done which showed sinus bradycardia rate 50 and 39. The patient did have some lightheadedness yesterday and the day before, but none today. Has been ambulating with no issues. Her hemoglobin is a little low at 10. She denies any history of heart disease. Review of Systems Negative except as stated in the HPI Past Family Social History Allergies: Coded Allergies: No Known Allergies (Unverified , 09/26/17) Past Medical History incision abscess Past Surgical History 2 C-sections Tonsillectomy Reported Medications Reported Meds & Active Scripts Active Oxycodone-Acetaminophen 5-325 (Oxycodone HCl/Acetaminophen) 5 Mg-325 Mg Tablet 2 Tab PO Q4H PRN Active Ordered Medications Current Medications Medications (Trade) Dose Ordered Sig/Virgie Route Start Time Stop Time Status Last Admin (Zofran Inj) 4 mg Q6HR PRN IV PUSH 09/26/17 18:00 09/29/17 09:35 (Ambien) 5 mg HS PRN PO 09/26/17 23:45 10/01/17 00:04 (Vistaril) 75 mg Q6H PRN PO 09/26/17 23:45 (Delores-Colace) 1 tab BID PO 09/27/17 10:45 09/30/17 08:14 (Milk Of Magnesia Liq) 30 ml Q12H PRN PO 09/27/17 10:45 (Senokot) 17.2 mg Q12H PRN PO 09/27/17 10:45 (Dulcolax Supp) 10 mg DAILY PRN RECTAL 09/27/17 10:45 (Lactulose Liq) 30 ml DAILY PRN PO 3/21/18 10:45 (Miralax) 17 gm DAILY PO 09/28/17 09:00 09/30/17 08:15 Ceftriaxone Sodium 2000 mg/ Sodium Chloride 100 ml @ 200 mls/hr Q24H IV 09/29/17 14:00 10/01/17 16:12 (Tylenol) 1,000 mg Q6H PRN PO 10/02/17 09:00 10/02/17 09:20 (Motrin) 600 mg Q6H PRN PO 10/02/17 10:00 10/02/17 09:20 Family History Denies any family history of heart disease Physical Exam Vital Signs Vital Signs Date Time Temp Pulse Resp B/P (MAP) Pulse Ox O2 Delivery O2 Flow Rate FiO2 10/02/17 07:30 97.9 39 16 151/79 (103) 97 10/02/17 06:00 98.0 51 16 140/72 (94) 100 10/02/17 02:30 50 152/87 (108) 10/02/17 00:30 98.4 49 16 143/82 (102) 99 10/01/17 20:00 98.5 47 18 142/76 (98) 100 10/01/17 16:00 97.0 37 18 149/72 (97) 100 10/01/17 12:56 97.6 39 18 131/71 (91) 98 Physical Exam GENERAL: Well-developed well-nourished. Morbidly obese. In no acute distress. NECK: No carotid bruits. No JVD. CARDIOVASCULAR: Bradycardic rate and regular rhythm. No murmur appreciated. RESPIRATORY: No accessory muscle use. Clear to auscultation. Breath sounds equal bilaterally. MUSCULOSKELETAL: No clubbing or cyanosis. No edema. NEUROLOGICAL: Awake and alert. Normal speech. Laboratory Laboratory Tests Test 10/01/17 15:30 10/02/17 08:10 White Blood Count 7.8 Red Blood Count 3.47 Hemoglobin 10.0 Hematocrit 29.9 Mean Corpuscular Volume 86.3 Mean Corpuscular Hemoglobin 28.8 Mean Corpuscular Hemoglobin Concent 33.4 Red Cell Distribution Width 13.6 Platelet Count 306 Mean Platelet Volume 8.7 Neutrophils (%) (Auto) 65.6 Lymphocytes (%) (Auto) 23.3 Monocytes (%) (Auto) 7.1 Eosinophils (%) (Auto) 3.1 Basophils (%) (Auto) 0.9 Neutrophils # (Auto) 5.1 Lymphocytes # (Auto) 1.8 Monocytes # (Auto) 0.6 Eosinophils # (Auto) 0.2 Basophils # (Auto) 0.1 CBC Comment DIFF FINAL Differential Comment Blood Urea Nitrogen 13 16 Creatinine 1.29 1.22 Random Glucose 94 88 Total Protein 7.0 Albumin 2.7 Calcium Level 8.4 8.3 Alkaline Phosphatase 84 Aspartate Amino Transf (AST/SGOT) 14 Alanine Aminotransferase (ALT/SGPT) 14 Total Bilirubin 0.3 Sodium Level 143 144 Potassium Level 3.6 3.5 Chloride Level 107 109 Carbon Dioxide Level 26.1 27.5 Anion Gap 10 8 Estimat Glomerular Filtration Rate 48 51 Date/Time Source Procedure Growth Status 09/26/17 15:25 Blood Peripheral Aerobic Blood Culture - Final NO GROWTH IN 5 DAYS Complete 09/26/17 15:25 Blood Peripheral Anaerobic Blood Culture - Final NO GROWTH IN 5 DAYS Complete 09/26/17 12:58 Wound Abdomen Gram Stain - Final Complete 09/26/17 12:58 Wound Culture - Final Morganella Morganii Complete Result Diagram: 10/01/17 1530 10/02/17 0810 Imaging Last Impressions Lower Extremity Ultrasound 10/01/17 1359 Signed Impressions: Service Date/Time: Sunday, October 01, 2017 14:09 - CONCLUSION: Negative for deep venous thrombosis. Vishal Lopez MD FACR Chest X-Ray 10/01/17 0000 Signed Impressions: Service Date/Time: Sunday, October 01, 2017 15:17 - CONCLUSION: Compensated cardiomegaly otherwise negative . Vishal Lopez MD FACR Abdomen/Pelvis CT 09/26/17 0000 Signed Impressions: Service Date/Time: Tuesday, September 26, 2017 10:12 - CONCLUSION: 1. 19.6 x 5.7 x 6.2 cm fluid collection in the deep subcutaneous tissues of the lower abdomen. Findings could represent postoperative seroma or abscess. 2. Prominent endometrial stripe likely related to the recent state. CT findings characteristic of bilateral sacroiliitis. Jose Hagen MD Assessment and Plan Assessment and Plan Sinus bradycardia: It is not clear that this is what is causing the patient's symptoms. Avoid AV caroline blocking agents. Recommend outpatient Holter monitor for further evaluation. Atypical chest discomfort: Sounds musculoskeletal. EKG with no ischemic changes. Echocardiogram essentially unremarkable. Discussed Condition With Patient, RN, . Martin Lamas Oct 02, 2017 11:10
--- NOTE | 2017-10-02 11:12 | PD.WCN.NOT ---
Wound Consult Description: Midline lower abdomen incision Recommendation: Please cleanse wound with normal saline and pat dry Wound care will apply wound VAC dressing on with settings at 125 mm/hg low continuous suction Dressing to be changed on Monday 10/02 and then -- Neg Pressure Wound Therapy Wound Location Wound Location: Midline lower abdomen incision Wound Description Length: 1.5cm Width: 16.0cm Depth: ~7.0cm Wound bed appearance: 75% beefy red granular tissue 25% Adipose tissue Periwound appearance: Unremarkable Settings Suction: 125 mmHg Intensity: Low Other Information: Windowpaned, Mushroomed Foam type: Black Number of pieces: 1 Additonal Information Patient was seen today by scientific writer for Wound vac dressing change.Old dressing removed with some discomfort noted.Wound cleansed with normal saline pat dry.Skin prep applied to periwound then covered with drape.Sponge applied to wound base covered with track pad suction started @ 125mmHg low continuos suction with no leaks noted.Patient tolerated dressing change well.Was able to tolerated bedside dressing change with no pain meds. Esau Ryan [facility] Oct 02, 2017 11:12
[2017-10-02 12:00] VITALS: BP 142/78; PULSE 44; RESP 24; TEMP 98.1; O2SAT 96
[2017-10-02 12:01] LABS: HEMATOCRIT 30.7 % (35.0-46.0); HEMOGLOBIN 10.3 GM/DL (11.6-15.3); MEAN CELL VOLUME 86.7 FL (80.0-100.0); MEAN CORPUSCULAR HEMOGLOBIN 29.1 PG (27.0-34.0); MEAN CORPUSCULAR HGB CONC 33.5 % (32.0-36.0); MEAN PLATELET VOLUME 8.8 FL (7.0-11.0); PLATELET COUNT 288 TH/MM3 (150-450); RED BLOOD COUNT 3.54 MIL/MM3 (4.00-5.30); RED CELL DISTRIBUTION WIDTH 13.1 % (11.6-17.2); WHITE BLOOD COUNT 8.2 TH/MM3 (4.0-11.0)
[2017-10-02] MEDS: cefTRIAXone 2,000 MG/NS 100 ML IV SCH ×2 (14:48)
[2017-10-02] MEDS ORDERED: MEASLES, MUMPS, RUBELLA VACCINE 0.5 ML VIAL SQ ONE (16:00)
[2017-10-02] MEDS ORDERED: DIPHTH/TETANUS/ACEL PERTUSSIS (BOOSTER) 0.5 ML VIAL/PFS IM ONE (16:00)
[2017-10-02 20:00] VITALS: BP 144/82; PULSE 40; RESP 16; TEMP 98; O2SAT 99
[2017-10-03] VITALS (13 sets, daily range): BP systolic 136–164; BP diastolic 71–92; PULSE 38–48; RESP 16–18; TEMP 97.6–98.2; O2SAT 98–100
--- NOTE | 2017-10-03 00:30 | EKG ---
Date Performed: 10/01/2017 Time Performed: 14:04:46 PTAGE: 31 years EKG: SINUS BRADYCARDIA BORDERLINE ECG PREVIOUS TRACING : 09/30/2017 16.56 DOCTOR: Tracy Diaz Interpretating Date/Time 10/03/2017 00:15:44
--- NOTE | 2017-10-03 03:10 | HHI.FPPN ---
Addendum to progress note ADDENDUM Reason for addendum: Additonal documentation Additional information S: Received notification from nursing staff regarding patient having dizziness, lightheadedness, and chest tightness in association with HR in the high 30's on intermittent monitoring. Patient interviewed; she reports she has had intermittent "flushed feeling" in her chest, continued chest heaviness which she thinks is more prominent, and lightheadedness overnight. Patient concerned something bad might happen to her due to her low HR O: VS- HR 42 bpm on exam Gen: NAD CV: Regular rhythm, bradycardia. Perfusion normal Resp: CTAB; normal rate A/P: Sinus bradycardia Impression: Sinus bradycardia on prior EKG during hospitalization; normal QT intervals. No heart block. Echo with mild concentric LVH but otherwise normal. Mildly worsening chest tightness overnight 10/03 Cardiology consulted -Unknown etiology. Plan for outpatient Holter. Avoid AV caroline blocking agents -Will repeat EKG -Will transfer to [facility] to monitor on telemetry for patient reassurance Francis Fallon MD, R3 Oct 03, 2017 03:09
[2017-10-03 05:26] LABS: BICARBONATE 25.9 MEQ/L (21.0-32.0); BLOOD UREA NITROGEN 17 MG/DL (7-18); CALCIUM 8.3 MG/DL (8.5-10.1); CHLORIDE 105 MEQ/L (98-107); CREATININE 1.18 MG/DL (0.50-1.00); GLOMERULAR FILTRATION RATE 53 ML/MIN (>89); GLUCOSE,RANDOM 91 MG/DL (74-106); SODIUM (NA) 140 MEQ/L (136-145)
[2017-10-03 05:30] LABS: TROPONIN I LESS THAN 0.02 NG/ML (0.02-0.05)
--- NOTE | 2017-10-03 07:33 | HHI.PR ---
Subjective Remarks Patient seen and examined this morning. She states that she is doing better. She is not having any chest pain or shortness of breath. Not feeling lightheaded or dizzy. She is eating and drinking well. She is also ambulating. She has had a bowel movement. No nausea or vomiting. Her pain is well controlled. She has set up an appointment with [facility] on 10/24, but will do a walk-in appt [facility]. Objective - Vital Signs Date Time Temp Pulse Resp B/P (MAP) Pulse Ox O2 Delivery O2 Flow Rate FiO2 10/03/17 04:49 98.1 42 16 151/71 (97) 98 Result Diagram: 10/02/17 1005 10/03/17 0434 Objective Remarks GENERAL: Obese female, lying in bed, in NAD SKIN: Warm and dry. CARDIOVASCULAR: Regular rate and rhythm RESPIRATORY: Breath sounds equal bilaterally. No accessory muscle use. GASTROINTESTINAL: Abdomen soft, nondistended, good bowel sounds. Expected tenderness in the area of abdominal wound. Soft, has a horizontal [id number] wound in the suprapubic area, packed, wound vacuum in place draining serosanguineous fluid. MUSCULOSKELETAL: No cyanosis, or edema. BACK: Nontender without obvious deformity. A/P Problem List: (1) Abdominal wall abscess ICD Code: L02.211 - Cutaneous abscess of abdominal wall Status: Acute Assessment & Plan: -Wound vacuum in place, replace dressing MWF, to be replaced this morning -Wound care on board -Continue Rocephin 2 g IV every 24 started on 09/29/2017 -Patient to be discharged home on Rocephin IV with home health care. Midline placed. 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 surgery Status: Acute Assessment & Plan: Continue post-op care Pain control as needed (3) Bradycardia ICD Code: R00.1 - Bradycardia, unspecified Status: Acute Assessment & Plan: Patient experiencing bradycardia in the 30s-50s since 10/01. Concerned about cardiomyopathy. Chest x-ray on 10/01 showed compensated cardiomegaly Echocardiogram on 09/28 showed concentric left ventricular hypertrophy EKG on 10/01 and 10/02 showed sinus bradycardia -Troponin was negative. Lower extremity ultrasound was negative for DVT -Will consult cardiology for any further recommendations as to the origin of this bradycardia -BNP on 10/02 was elevated at 210. Will repeat today. Discharge Planning Discharge upon approval of home health nursing for wound care and IV infusion plus wound vac. When she gets a PCP with [facility], she can be referred to the [place] wound care clinic with Dr. Weir She needs to follow up with [facility] where she had her performed. Megan Martinez MD R1 Oct 03, 2017 07:33
--- NOTE | 2017-10-03 08:49 | PD.CARD.PN ---
Subjective Subjective Remarks Patient states she was sitting on her bed yesterday she began to feel lightheaded. She states her heart rate was 37 at the time. This caused her to be very anxious. An EKG was checked and her heart rate was 42. She denies any near syncopal sensation. No chest pain or pain with breathing. No shortness of breath. She denies any calf swelling or pain. She states her pain has been controlled. Discussed with RN, patient has been having episodes with heart rate down to the 30s where she has been asymptomatic. (Martin Schwab) Objective Medications Current Medications Medications (Trade) Dose Ordered Sig/Virgie Route Start Time Stop Time Status Last Admin (Zofran Inj) 4 mg Q6HR PRN IV PUSH 09/26/17 18:00 09/29/17 09:35 (Ambien) 5 mg HS PRN PO 09/26/17 23:45 10/01/17 00:04 (Vistaril) 75 mg Q6H PRN PO 09/26/17 23:45 (Delores-Colace) 1 tab BID PO 09/27/17 10:45 09/30/17 08:14 (Milk Of Magnesia Liq) 30 ml Q12H PRN PO 09/27/17 10:45 (Senokot) 17.2 mg Q12H PRN PO 09/27/17 10:45 (Dulcolax Supp) 10 mg DAILY PRN RECTAL 09/27/17 10:45 (Lactulose Liq) 30 ml DAILY PRN PO 09/27/17 10:45 (Miralax) 17 gm DAILY PO 09/28/17 09:00 09/30/17 08:15 Ceftriaxone Sodium 2000 mg/ Sodium Chloride 100 ml @ 200 mls/hr Q24H IV 09/29/17 14:00 10/02/17 14:48 (Tylenol) 1,000 mg Q6H PRN PO 10/02/17 09:00 10/02/17 20:55 (Motrin) 600 mg Q6H PRN PO 10/02/17 10:00 10/02/17 20:55 Vital Signs / I&O Vital Signs Date Time Temp Pulse Resp B/P (MAP) Pulse Ox O2 Delivery O2 Flow Rate FiO2 10/03/17 04:49 98.1 42 16 151/71 (97) 98 10/03/17 01:30 40 18 161/85 (110) 99 10/03/17 00:00 98.2 38 18 136/77 (96) 100 10/02/17 20:00 98.0 40 16 144/82 (102) 99 10/02/17 12:00 98.1 44 24 142/78 (99) 96 Physical Exam GENERAL: Well-developed well-nourished. Morbidly obese. In no acute distress. NECK: No carotid bruits. No JVD. CARDIOVASCULAR: Bradycardic rate and regular rhythm. No murmur appreciated. RESPIRATORY: No accessory muscle use. Clear to auscultation. Breath sounds equal bilaterally. MUSCULOSKELETAL: No clubbing or cyanosis. No edema. No calf tenderness to palpation and negative Homans sign bilaterally. NEUROLOGICAL: Awake and alert. Normal speech. Laboratory Laboratory Tests Test 10/02/17 10:05 10/03/17 04:34 White Blood Count 8.2 TH/MM3 Red Blood Count 3.54 MIL/MM3 Hemoglobin 10.3 GM/DL Hematocrit 30.7 % Mean Corpuscular Volume 86.7 FL Mean Corpuscular Hemoglobin 29.1 PG Mean Corpuscular Hemoglobin Concent 33.5 % Red Cell Distribution Width 13.1 % Platelet Count 288 TH/MM3 Mean Platelet Volume 8.8 FL B-Type Natriuretic Peptide 210 PG/ML Blood Urea Nitrogen 17 MG/DL Creatinine 1.18 MG/DL Random Glucose 91 MG/DL Calcium Level 8.3 MG/DL Sodium Level 140 MEQ/L Potassium Level 3.4 MEQ/L Chloride Level 105 MEQ/L Carbon Dioxide Level 25.9 MEQ/L Anion Gap 9 MEQ/L Estimat Glomerular Filtration Rate 53 ML/MIN Troponin I LESS THAN 0.02 NG/ML Imaging Last Impressions Lower Extremity Ultrasound 10/01/17 1359 Signed Impressions: Service Date/Time: Sunday, October 01, 2017 14:09 - CONCLUSION: Negative for deep venous thrombosis. Vishal Lopez MD FACR Chest X-Ray 10/01/17 0000 Signed Impressions: Service Date/Time: Sunday, October 01, 2017 15:17 - CONCLUSION: Compensated cardiomegaly otherwise negative . Vishal Lopez MD FACR Abdomen/Pelvis CT 09/26/17 0000 Signed Impressions: Service Date/Time: Tuesday, September 26, 2017 10:12 - CONCLUSION: 1. 19.6 x 5.7 x 6.2 cm fluid collection in the deep subcutaneous tissues of the lower abdomen. Findings could represent postoperative seroma or abscess. 2. Prominent endometrial stripe likely related to the recent state. CT findings characteristic of bilateral sacroiliitis. Jose Hagen MD (Martin Schwab) Assessment and Plan Assessment and Plan Sinus bradycardia: Possibly secondary to increased vagal tone due to pain. Avoid AV caroline blocking agents. Recommend outpatient Holter monitor for further evaluation. Atypical chest discomfort: Sounds musculoskeletal. EKG with no ischemic changes. Troponin within normal limits. Echocardiogram essentially unremarkable. Lightheadedness: Possibly secondary to anemia and renal insufficiency. Patient to be transferred to telemetry floor. ELEANOR: Secondary to antibiotics question discussed with OB primary team, will have nephrology see the patient. (Martin Schwab) Assessment and Plan EKGs reviewed telemetry reviewed echo reviewed no high grade conduction disease no prolonged pauses symptoms were associated with sitting up quickly, may have been more orthostatic than bradycardiac. HR augments appropriately with activity and patient states she feels better with activity. no obvious AV caroline blocking agents. replete electrolytes HR lowest 39 bpm, mainly 40-50's. check TSH avoid PPM for now given no conduction disease, not clear if symptoms associated with slow HR, young age, and infection. May be related to increased vagal tone. Hopeful it will normalize once she makes full recovery. outpatient holter if + recurrent symptoms, particularly with associated slow HR, then would consult electrophysiology (dr garrison, dr estrada, or dr seay) for their opinion on PPM. will sign off call with further questions (Patrick Diamond MD) Martin Schwab Oct 03, 2017 08:49 Patrick Diamond MD Oct 03, 2017 10:48
[2017-10-03] MEDS: DOCUSATE SODIUM 50 MG/SENNA 8.6 MG TAB PO SCH ×2 (09:03→20:54)
[2017-10-03] MEDS: POLYETHYLENE GLYCOL 17 GM PKG PO SCH (09:03)
[2017-10-03] MEDS ORDERED: POTASSIUM CHLORIDE 25 MEQ EFFERVESCENT TAB PO ONE (09:15)
[2017-10-03 11:19] LABS: PHOSPHORUS 3.3 MG/DL (2.5-4.9)
[2017-10-03] MEDS: IBUPROFEN 600 MG TAB PO PRN (11:50)
[2017-10-03] MEDS: cefTRIAXone 2,000 MG/NS 100 ML IV SCH ×2 (14:28)
--- NOTE | 2017-10-03 15:50 | EKG ---
Date Performed: 10/03/2017 Time Performed: 03:15:13 PTAGE: 31 years EKG: SINUS BRADYCARDIA BORDERLINE ECG PREVIOUS TRACING : 10/01/2017 14.04 Probably normal for age DOCTOR: Jimmy Serna Interpretating Date/Time 10/03/2017 15:46:52
--- NOTE | 2017-10-03 16:13 | PD.CONS ---
HPI Service Nephrology Consult Requested By Dr. Georgiana Goldstein Reason for Consult Acute kidney injury Primary Care Physician No Primary Care Physician History of Present Illness Patient is a 31-year-old with no signigicant past medical history who presented to ED with abdominal pain and fever. She gave to her son on 09/15 by C- section at [facility] in [place]. She was discharged home on 09/17. Patient has a wound vac and is receiving antibiotics. Nephrology was consulted for acute kidney injury with a creatinine of 1.46 which has been improving and today at 1.18. Hypokalemia with k of 3.4. Good UOP. (Abril Storey) Review of Systems Constitutional: COMPLAINS OF: Dizziness Respiratory: COMPLAINS OF: Shortness of breath Cardiovascular: COMPLAINS OF: Chest pain, Lower Extremity Edema Gastrointestinal: COMPLAINS OF: Abdominal pain Psychiatric: COMPLAINS OF: Anxiety (Abril Storey) Past Family Social History Allergies: Coded Allergies: No Known Allergies (Unverified , 09/26/17) Past Medical History HTN with Past Surgical History 2 C-sections Tonsillectomy Active Ordered Medications Current Medications Medications (Trade) Dose Ordered Sig/Virgie Route Start Time Stop Time Status Last Admin (Zofran Inj) 4 mg Q6HR PRN IV PUSH 09/26/17 18:00 09/29/17 09:35 (Ambien) 5 mg HS PRN PO 09/26/17 23:45 10/01/17 00:04 (Vistaril) 75 mg Q6H PRN PO 09/26/17 23:45 (Delores-Colace) 1 tab BID PO 09/27/17 10:45 09/30/17 08:14 (Milk Of Magnesia Liq) 30 ml Q12H PRN PO 09/27/17 10:45 (Senokot) 17.2 mg Q12H PRN PO 09/27/17 10:45 (Dulcolax Supp) 10 mg DAILY PRN RECTAL 09/27/17 10:45 (Lactulose Liq) 30 ml DAILY PRN PO 09/27/17 10:45 (Miralax) 17 gm DAILY PO 09/28/17 09:00 09/30/17 08:15 Ceftriaxone Sodium 2000 mg/ Sodium Chloride 100 ml @ 200 mls/hr Q24H IV 09/29/17 14:00 10/03/17 14:28 (Tylenol) 1,000 mg Q6H PRN PO 10/02/17 09:00 10/02/17 20:55 (Motrin) 600 mg Q6H PRN PO 10/02/17 10:00 10/03/17 11:50 Social History Denies any tobacco or ETOH use Lives with . (Abril Storey) Physical Exam Vital Signs Vital Signs Date Time Temp Pulse Resp B/P (MAP) Pulse Ox O2 Delivery O2 Flow Rate FiO2 10/03/17 14:30 97.9 42 18 155/92 (113) 99 10/03/17 12:45 97.6 40 18 162/92 (115) 10/03/17 08:30 97.9 41 16 158/85 (109) 99 10/03/17 04:49 98.1 42 16 151/71 (97) 98 10/03/17 01:30 40 18 161/85 (110) 99 10/03/17 00:00 98.2 38 18 136/77 (96) 100 10/02/17 20:00 98.0 40 16 144/82 (102) 99 Physical Exam GENERAL: Alert and oriented SKIN: Warm and dry. Wound vac to abdomen HEAD: Normocephalic. EYES: No scleral icterus. No injection or drainage. NECK: Supple, trachea midline. No JVD or lymphadenopathy. CARDIOVASCULAR: Regular rate and rhythm without murmurs, gallops, or rubs. RESPIRATORY: Breath sounds equal bilaterally. No accessory muscle use. GASTROINTESTINAL: Abdomen soft, non-tender, nondistended. MUSCULOSKELETAL: No cyanosis, or edema. BACK: Nontender without obvious deformity. No CVA tenderness. Laboratory Laboratory Tests Test 10/03/17 04:34 10/03/17 10:32 10/03/17 12:01 Blood Urea Nitrogen 17 Creatinine 1.18 Random Glucose 91 Calcium Level 8.3 Sodium Level 140 Potassium Level 3.4 Chloride Level 105 Carbon Dioxide Level 25.9 Anion Gap 9 Estimat Glomerular Filtration Rate 53 Troponin I LESS THAN 0.02 LESS THAN 0.02 Phosphorus Level 3.3 Magnesium Level 2.0 Thyroid Stimulating Hormone 3rd Gen 2.020 B-Type Natriuretic Peptide 185 Date/Time Source Procedure Growth Status 09/26/17 15:25 Blood Peripheral Aerobic Blood Culture - Final NO GROWTH IN 5 DAYS Complete 09/26/17 15:25 Blood Peripheral Anaerobic Blood Culture - Final NO GROWTH IN 5 DAYS Complete 09/26/17 12:58 Wound Abdomen Gram Stain - Final Complete 09/26/17 12:58 Wound Culture - Final Morganella Morganii Complete (Abril Storey) Result Diagram: 10/02/17 1005 10/03/17 0434 Imaging Last Impressions Lower Extremity Ultrasound 10/01/17 1359 Signed Impressions: Service Date/Time: Sunday, October 01, 2017 14:09 - CONCLUSION: Negative for deep venous thrombosis. Vishal Lopez MD FACR Chest X-Ray 10/01/17 0000 Signed Impressions: Service Date/Time: Sunday, October 01, 2017 15:17 - CONCLUSION: Compensated cardiomegaly otherwise negative . Vishal Lopez MD FACR Abdomen/Pelvis CT 09/26/17 0000 Signed Impressions: Service Date/Time: Tuesday, September 26, 2017 10:12 - CONCLUSION: 1. 19.6 x 5.7 x 6.2 cm fluid collection in the deep subcutaneous tissues of the lower abdomen. Findings could represent postoperative seroma or abscess. 2. Prominent endometrial stripe likely related to the recent state. CT findings characteristic of bilateral sacroiliitis. Jose Hagen MD (Abril Storey) Assessment and Plan Problem List: (1) ELEANOR (acute kidney injury) ICD Codes: N17.9 - Acute kidney failure, unspecified Plan: Acute kidney injury possible prerenal vs ATN from possible dehydration or infection/antibiotic use. Creatinine of 1.18 which has improved from 1.46. No proteinuria noted CT noted with kidney which is normal in size and shape. There is no mass, stone or hydronephrosis. Plan Creatinine is improving. Fluids encouraged Monitor I+O Avoid nephrotoxins Continue antibiotics Will order labs and urine studies. (Abril Storey) Problem List: (1) ELEANOR (acute kidney injury) ICD Codes: N17.9 - Acute kidney failure, unspecified Plan: Acute kidney injury possible prerenal vs ATN from possible dehydration or infection/antibiotic use. Other possibility is Vanco. toxicity. Creatinine of 1.18 which has improved from 1.46. No proteinuria noted CT noted with kidney which is normal in size and shape. There is no mass, stone or hydronephrosis. Plan Creatinine is improving. Fluids encouraged Monitor I+O Avoid nephrotoxins Continue antibiotics Will order labs and urine studies. Patient seen and examine , agree with above. Follow the urine out put and BMP. (Bessie Bowser MD) Abril Storey Oct 03, 2017 16:13 Bessie Bowser MD Oct 03, 2017 19:21
[2017-10-03] MEDS: ACETAMINOPHEN 500 MG CPLT PO PRN (17:36)
[2017-10-04] VITALS (22 sets, daily range): BP systolic 123–189; BP diastolic 65–94; PULSE 40–100; RESP 16–18; TEMP 97.7–98.4; O2SAT 98–100
[2017-10-04] MEDS ORDERED: NIFEdipine 10 MG CAP PO ONE (00:45)
[2017-10-04] MEDS: IBUPROFEN 600 MG TAB PO PRN (03:03)
[2017-10-04] MEDS ORDERED: oxyCODONE/ACETAMINOPHEN 5 MG/325 MG TAB PO ONE (04:00)
[2017-10-04] MEDS ORDERED: oxyCODONE/ACETAMINOPHEN 5 MG/325 MG TAB PO PRN (04:30)
[2017-10-04 06:51] LABS: HEMATOCRIT 30.2 % (35.0-46.0); HEMOGLOBIN 10.2 GM/DL (11.6-15.3); MEAN CELL VOLUME 85.3 FL (80.0-100.0); MEAN CORPUSCULAR HEMOGLOBIN 28.9 PG (27.0-34.0); MEAN CORPUSCULAR HGB CONC 33.9 % (32.0-36.0); MEAN PLATELET VOLUME 9.3 FL (7.0-11.0); PLATELET COUNT 306 TH/MM3 (150-450); RED BLOOD COUNT 3.54 MIL/MM3 (4.00-5.30); RED CELL DISTRIBUTION WIDTH 13.5 % (11.6-17.2); WHITE BLOOD COUNT 9.3 TH/MM3 (4.0-11.0)
[2017-10-04 07:03] LABS: ALT (GPT) 16 U/L (10-53); AST (GOT) 9 U/L (15-37); BICARBONATE 27.9 MEQ/L (21.0-32.0); BLOOD UREA NITROGEN 13 MG/DL (7-18); CALCIUM 8.8 MG/DL (8.5-10.1); CHLORIDE 106 MEQ/L (98-107); CREATININE 1.08 MG/DL (0.50-1.00); GLOMERULAR FILTRATION RATE 59 ML/MIN (>89); GLUCOSE,RANDOM 88 MG/DL (74-106); SODIUM (NA) 143 MEQ/L (136-145)
[2017-10-04 07:06] LABS: ALKALINE PHOSPHATASE 81 U/L (45-117); TOTAL BILIRUBIN ADULT 0.3 MG/DL (0.2-1.0); TOTAL PROTEIN 7.3 GM/DL (6.4-8.2)
--- NOTE | 2017-10-04 08:36 | HHI.PR ---
Subjective Remarks Patient is doing much better this morning. She states that last night she had another panic attack that resulted in her crying and her blood pressure went up to the 190s systolic. She was given a blood pressure medication that dropped her blood pressure and also raised the heart rate. However, she developed a migraine headache which was excruciating. She received Motrin and some antinausea medication for vomiting which made her feel better and she was able to sleep. When she woke up, the chest pressure that she has had for the last 3- 4 days went away. She still has some headache but is much better. She is eating and drinking okay, and has normal bowel movements. She has been urinating a lot because she is drinking a lot of fluids. Her abdominal pain is much decreased. Objective - Vital Signs Date Time Temp Pulse Resp B/P (MAP) Pulse Ox O2 Delivery O2 Flow Rate FiO2 10/04/17 06:00 42 10/04/17 03:00 97.7 18 155/69 (97) 100 Result Diagram: 10/04/17 0540 10/04/17 0540 Objective Remarks GENERAL: Obese female, lying in bed, in NAD SKIN: Warm and dry. HEAD: Normocephalic. EYES: No scleral icterus. No injection or drainage. NECK: Supple, trachea midline. No JVD or lymphadenopathy. CARDIOVASCULAR: Bradycardic-regular rate and rhythm RESPIRATORY: Breath sounds equal bilaterally. No accessory muscle use. GASTROINTESTINAL: Abdomen soft, nondistended, good bowel sounds. Mild tenderness to palpation lower abdominal area. Soft, has a horizontal 19p39pm wound in the suprapubic area, packed, wound vacuum in place draining serosanguineous fluid. MUSCULOSKELETAL: No cyanosis, or edema. BACK: Nontender without obvious deformity. A/P Problem List: (1) Abdominal wall abscess ICD Code: L02.211 - Cutaneous abscess of abdominal wall Status: Acute Assessment & Plan: -Wound vacuum in place, replace dressing MWF -Wound care on board -Continue Rocephin 2 g IV every 24 started on 09/29/2017 -Patient to be discharged home on Rocephin IV with home health care. Midline in place -Morphine IV for dressing changes -Percocet for pain -Blood cultures NGTD -Infectious disease on board (2) Bradycardia ICD Code: R00.1 - Bradycardia, unspecified Status: Acute Assessment & Plan: -Has been bradycardic to the 30s -Improved overnight after administration of nifedipine XL -Was transferred to the [facility] for telemetry monitoring -Event strip was interrogated with no significant findings except bradycardia -Continue to monitor -Cardiology signed off but recommended outpatient Holter monitoring Workup so far Chest x-ray on 10/01 showed compensated cardiomegaly Echocardiogram on 09/28 showed concentric left ventricular hypertrophy EKG on 10/01 and 10/02 showed sinus bradycardia Troponin was negative (3) ELEANOR (acute kidney injury) ICD Code: N17.9 - Acute kidney failure, unspecified Assessment & Plan: -Creatinine 1.08 today. Much improved -Continue to monitor. Keep hydrated. -Nephrology consulted. Labs ordered. (4) Status post ICD Code: Z98.891 - History of uterine scar from previous surgery Status: Acute Assessment & Plan: -Continue routine care -Assist with pumping as needed (5) FEN Status: Acute Assessment & Plan: -Oral fluids -Monitor electrolytes daily and replace as needed -Regular adult diet -SCDs Discharge Planning Plan to discharge home today with arrangements for home health care nursing for IV Rocephin infusion and wound VAC/wound care management She will follow-up with cardiology as an outpatient. Discussed with Ara Lockhart MD Oct 04, 2017 08:36
[2017-10-04] MEDS: POLYETHYLENE GLYCOL 17 GM PKG PO SCH (09:00)
--- NOTE | 2017-10-04 09:37 | HHI.NPPN ---
Subjective Renal Failure: Acute History of Present Illness Patient is a 31-year-old with no signigicant past medical history who presented to ED with abdominal pain and fever. She gave to her son on 09/15 by C- section at [facility] in [place]. She was discharged home on 09/17. Patient has a wound vac and is receiving antibiotics. Nephrology was consulted for acute kidney injury with a creatinine of 1.46 which has been improving and today at 1.18. Hypokalemia with k of 3.4. Good UOP. Additional Remarks Plans for discharge home today. (Abril Storey) Review of Systems General Constitutional: Fatigue (Abril Storey) Cardiovascular Cardiac Remarks denies CP (Abril Storey) Gastrointestinal Gastrointestinal: Abdominal Pain (Abril Storey) Genitourinary Remarks denies any dysuria (Abril Storey) Objective Data Data Vital Signs Date Time Temp Pulse Resp B/P (MAP) Pulse Ox O2 Delivery O2 Flow Rate FiO2 10/04/17 06:00 42 10/04/17 05:00 42 10/04/17 04:00 62 10/04/17 03:00 97.7 60 18 155/69 (97) 100 10/04/17 03:00 60 10/04/17 02:00 146/65 (92) 10/04/17 02:00 60 10/04/17 01:15 123/66 (85) 10/04/17 01:00 48 10/04/17 00:00 44 10/04/17 00:00 98.4 43 16 189/94 (125) 100 10/03/17 23:00 38 10/03/17 22:00 48 10/03/17 21:00 38 10/03/17 20:00 42 10/03/17 20:00 98.0 41 16 164/84 (110) 100 10/03/17 19:00 46 10/03/17 16:00 97.9 38 18 162/86 (111) 98 10/03/17 15:00 42 10/03/17 14:30 97.9 42 18 155/92 (113) 99 10/03/17 12:45 97.6 40 18 162/92 (115) (Abril Storey) -: 10/04/17 0540 10/04/17 0540 Imaging Last Impressions Lower Extremity Ultrasound 10/01/17 1359 Signed Impressions: Service Date/Time: Sunday, October 01, 2017 14:09 - CONCLUSION: Negative for deep venous thrombosis. Vishal Lopez MD FACR Chest X-Ray 10/01/17 0000 Signed Impressions: Service Date/Time: Sunday, October 01, 2017 15:17 - CONCLUSION: Compensated cardiomegaly otherwise negative . Vishal Lopez MD FACR Abdomen/Pelvis CT 09/26/17 0000 Signed Impressions: Service Date/Time: Tuesday, September 26, 2017 10:12 - CONCLUSION: 1. 19.6 x 5.7 x 6.2 cm fluid collection in the deep subcutaneous tissues of the lower abdomen. Findings could represent postoperative seroma or abscess. 2. Prominent endometrial stripe likely related to the recent state. CT findings characteristic of bilateral sacroiliitis. Jose Hagen MD (Abril Storey) Physical Exam General Appearance: No Acute Distress, Obese (Abril Storey) Eyes Eye Exam: Pupils Equal (Abril Storey) Throat Throat Exam: Oral Mucosa [place] & Moist (Abril Storey) Pulmonary Resp Exam: Clear Bilaterally, Breath Sounds Equal, No Distress (Abril Storey) Cardiology CV Exam: Regular, Bradycardia (Abril Storey) Gastrointestinal/Abdomen GI Exam: Soft, Non-Tender (Abril Storey) Genitourinary Exam: Flank Non-Tender (Abril Storey) Integumentary Skin Exam: Clear, Warm Skin Remarks Wound vac (Abril Storey) Extremeties Extremities Exam: Trace Edema (Abril Storey) Neurologic Neuro Exam: Alert, Awake (Abril Storey) Psychiatric Psych Exam: Appropriate Responses (Abril Storey) Assessment/Plan Problem List: (1) LEEANOR (acute kidney injury) ICD Codes: N17.9 - Acute kidney failure, unspecified Plan: Acute kidney injury possible prerenal vs ATN from possible dehydration or infection/antibiotic use. Other possibility is Vanco. toxicity. Creatinine of 1.18 which has improved from 1.46. No proteinuria noted CT noted with kidney which is normal in size and shape. There is no mass, stone or hydronephrosis. Plan Creatinine is improving. Fluids encouraged Avoid nephrotoxins Anticipate discharge home today. Serology is pending can follow up outpatient. (Abril Storey) Problem List: (1) ELEANOR (acute kidney injury) ICD Codes: N17.9 - Acute kidney failure, unspecified Plan: Acute kidney injury possible prerenal vs ATN from possible dehydration or infection/antibiotic use. Other possibility is Vanco. toxicity. Creatinine of 1.18 which has improved from 1.46. No proteinuria noted CT noted with kidney which is normal in size and shape. There is no mass, stone or hydronephrosis. Plan Creatinine is improving. Fluids encouraged Avoid nephrotoxins Anticipate discharge home today. Serology is pending can follow up outpatient. Patient seen and examined, agree with above. If D/C , can follow with PCP and refer to Nephrology as needed. (Bessie Bowser MD) Abril Storey Oct 04, 2017 09:36 Bessie Bowser MD Oct 04, 2017 18:26
[2017-10-04] MEDS: ACETAMINOPHEN 500 MG CPLT PO PRN (10:13)
[2017-10-04] MEDS: DOCUSATE SODIUM 50 MG/SENNA 8.6 MG TAB PO SCH ×2 (10:13→22:26)
[2017-10-04] MEDS ORDERED: NIFE1TAB85 PO ×2 (11:32→17:29)
--- NOTE | 2017-10-04 14:12 | PD.PSY.CON ---
Provisional Diagnosis Admission Date Sep 26, 2017 at 12:11 [place]. Adjustment disorder with depressed mood and anxiety, R/O Baby Blues History of Present Illness Service Psychiatry Consult Requested By Medical team Reason for Consult Anxiety and depression Primary Care Physician No Primary Care Physician HPI The patient is a is 31-year-old woman, domiciled with her in [facility], mother of 2 kids, unemployed at the moment, with psychiatric history of depression, anxiety, no previous psychiatric hospitalizations, no previous suicide attempts, she is not in psychotropics at this moment, presenting to the ED today due to abdominal pain and fever. She gave to her son on 09/15 by C -section at [facility] in [place]. She was discharged home on 09/17. She was admitted due to abdominal wall abscess and Bradycardia. Consulted to psychiatry due symptomatology of depression and anxiety. On psychiatric evaluation patient is found sleeping, she is easily arousable. She is calm, cooperative, pleasant. Patient reported that she has been a little bit anxious and sad due to her current medical situation. She explains that she deliver a baby about 2 weeks ago, but she has not being able to enjoy her baby. She says that she misses her 2 kids. She also reports that she has been stressed because "is no recent to be in the hospital with these medical complications while you have 2 kids to take care of and also ". She reports that at times she has been tearful and anxious, she denies being depressed, she denies anhedonia, she denies hopelessness, she denies helplessness, she denies worthlessness, she denies suicidal or homicidal ideation, she denies visual and auditory hallucinations. She does report difficulty sleeping at night, but usually due to the constant transit of nursing in her room. The patient is fully oriented 3, with no attention deficit, no fluctuation of consciousness. Review of Systems Constitutional: DENIES: Diaphoretic episodes, Fatigue, Fever, Weight gain, Weight loss, Chills, Dizziness, Change in appetite, Night Sweats Endocrine: DENIES: Abnorml menstrual pattern, Heat/cold intolerance, Polydipsia , Polyuria, Polyphagia Eyes: DENIES: Blurred vision, Diplopia, Eye inflammation, Eye pain, Vision loss , Photosensitivity, Double Vision Ears, nose, mouth, throat: DENIES: Tinnitus, Hearing loss, Vertigo, Nasal discharge, Oral lesions, Throat pain, Hoarseness, Ear Pain, Running Nose, Epistaxis, Sinus Pain, Toothache, Odynophagia Respiratory: DENIES: Apneas, Cough, Snoring, Wheezing, Hemoptysis, Sputum production, Shortness of breath Cardiovascular: DENIES: Chest pain, Palpitations, Syncope, Dyspnea on Exertion , PND, Lower Extremity Edema, Orthopnea, Claudication Gastrointestinal: DENIES: Abdominal pain, Black stools, Bloody stools, Constipation, Diarrhea, Nausea, Vomiting, Difficulty Swallowing, Anorexia Musculoskeletal: DENIES: Joint pain, Muscle aches, Stiffness, Joint Swelling, Back pain, Neck pain Integumentary: DENIES: Abnormal pigmentation, Pruritus, Rash, Nail changes, Breast masses, Breast skin changes, Nipple discharge Hematologic/lymphatic: DENIES: Bruising, Lymphadenopathy Immunologic/allergic: DENIES: Eczema, Urticaria Neurologic: DENIES: Abnormal gait, Headache, Localized weakness, Paresthesias, Seizures, Speech Problems, Tremor, Poor Balance Psychiatric: DENIES: Anxiety, Confusion, Mood changes, Depression, Hallucinations, Agitation, Suicidal Ideation, Homicidal Ideation, Delusions Past Family Social History Coded Allergies: No Known Allergies (Unverified , 09/26/17) Active Scripts Nifedipine ER 24 HR (Procardia XL) 30 Mg Tab, 30 MG PO DAILY, #30 TAB 0 Refills Prov:rAa Goldstein MD 10/04/17 Oxycodone HCl/Acetaminophen (Oxycodone-Acetaminophen 5-325) 5 Mg-325 Mg Tablet, 2 TAB PO Q4H Y for pain 6-10, #30 Prov:Ara Goldstein MD 09/29/17 Current Medications Medications (Trade) Dose Ordered Sig/Virgie Route Start Time Stop Time Status Last Admin (Zofran Inj) 4 mg Q6HR PRN IV PUSH 09/26/17 18:00 09/29/17 09:35 (Ambien) 5 mg HS PRN PO 09/26/17 23:45 10/01/17 00:04 (Vistaril) 75 mg Q6H PRN PO 09/26/17 23:45 (Delores-Colace) 1 tab BID PO 09/27/17 10:45 10/04/17 10:13 (Milk Of Magnesia Liq) 30 ml Q12H PRN PO 3/21/18 10:45 (Senokot) 17.2 mg Q12H PRN PO 09/27/17 10:45 (Dulcolax Supp) 10 mg DAILY PRN RECTAL 09/27/17 10:45 (Lactulose Liq) 30 ml DAILY PRN PO 09/27/17 10:45 (Miralax) 17 gm DAILY PO 09/28/17 09:00 09/30/17 08:15 Ceftriaxone Sodium 2000 mg/ Sodium Chloride 100 ml @ 200 mls/hr Q24H IV 09/29/17 14:00 10/03/17 14:28 (Tylenol) 1,000 mg Q6H PRN PO 10/02/17 09:00 10/04/17 10:13 Family Psych History No family psychiatric history Social History Patient was born and raised in [facility], she lives in [facility] with her , she has 2 kids one is less than a month, another 2 years, she is unemployed, college graduate Patient's Strengths (min. 2) Family Physical Exam No tremors, no EPS, no psychomotor agitation or retardation, no stiffness Vital Signs Vital Signs Date Time Temp Pulse Resp B/P (MAP) Pulse Ox O2 Delivery O2 Flow Rate FiO2 10/04/17 12:00 46 10/04/17 11:00 98.3 16 164/77 (106) 100 I/O 10/04/17 10/04/17 10/05/17 08:00 16:00 00:00 Intake Total 720 ml Output Total 4950 ml Balance -4230 ml Lab Results Test 10/03/17 18:26 10/04/17 05:40 White Blood Count 9.3 TH/MM3 Red Blood Count 3.54 MIL/MM3 Hemoglobin 10.2 GM/DL Hematocrit 30.2 % Mean Corpuscular Volume 85.3 FL Mean Corpuscular Hemoglobin 28.9 PG Mean Corpuscular Hemoglobin Concent 33.9 % Red Cell Distribution Width 13.5 % Platelet Count 306 TH/MM3 Mean Platelet Volume 9.3 FL Blood Urea Nitrogen 13 MG/DL Creatinine 1.08 MG/DL Random Glucose 88 MG/DL Total Protein 7.3 GM/DL Albumin 3.0 GM/DL Calcium Level 8.8 MG/DL Alkaline Phosphatase 81 U/L Aspartate Amino Transf (AST/SGOT) 9 U/L Alanine Aminotransferase (ALT/SGPT) 16 U/L Total Bilirubin 0.3 MG/DL Sodium Level 143 MEQ/L Potassium Level 3.4 MEQ/L Chloride Level 106 MEQ/L Carbon Dioxide Level 27.9 MEQ/L Anion Gap 9 MEQ/L Estimat Glomerular Filtration Rate 59 ML/MIN Date/Time Source Procedure Growth Status 09/26/17 15:25 Blood Peripheral Aerobic Blood Culture - Final NO GROWTH IN 5 DAYS Complete 09/26/17 15:25 Blood Peripheral Anaerobic Blood Culture - Final NO GROWTH IN 5 DAYS Complete 09/26/17 12:58 Wound Abdomen Gram Stain - Final Complete 09/26/17 12:58 Wound Culture - Final Morganella Morganii Complete Mental Status Examination Appearance: Appropriate Consciousness: Alert Orientation: x4 Motor Activity: Normal gait Speech: Unremarkable Language: Adequate Fund of Knowledge: Adequate Attention and Concentration: Adequate Memory: Unremarkable Mood: Appropriate Affect: Appropriate Thought Process & Associations: Intact Thought Content: Appropriate Hallucination Type: None Delusion Type: None Suicidal Ideation: No Suicidal Plan: No Suicidal Intention: No Homicidal Ideation: No Homicidal Plan: No Homicidal Intention: No Insight: Adequate Judgment: Adequate Assessment & Plan Problem List: (1) Adjustment disorder with depressed mood ICD Codes: F43.21 - Adjustment disorder with depressed mood Assessment & Plan: On psychiatric evaluation today the patient does not present any significant evidence of concerning, significant or acute symptomatology of depression, anxiety, chloe or psychosis. The patient denies suicidal and homicidal ideation, she denies visual and auditory hallucinations. She is calm, cooperative, logical, coherent and relevant. She does report occasional sadness, anxiety mostly related with her current medical situation, but also to the fact that she misses her 2 kids. Her presentation seems to be secondary to adjustment with depression and anxiety, is important clarified that the patient he is in a high risk for depression and primary anxiety due to her current stressors and state. Patient could benefit of low-dose of antidepressant and antianxiety medication, but the patient is committed to lactate her baby and prefers to to avoid this medication as much as possible. I agree with hydroxyzine 75 mg every 8 hours as needed anxiety and insomnia. She does not meet criteria for involuntary psychiatric admission. Extensive supportive psychotherapy, psychoeducation and motivation provided. Consult appreciated Assessment & Plan Estimated LOS: Earnest Thao MD Oct 04, 2017 14:12
[2017-10-04] MEDS: cefTRIAXone 2,000 MG/NS 100 ML IV SCH ×2 (15:20)
[2017-10-04] MEDS: IBUPROFEN 800 MG TAB PO SCH ×2 (17:52→22:26)
[2017-10-06] MEDS ORDERED: OXYC1TAB63 PO (09:54)
== END 2017-10-04 23:26 | disposition home or self-care (01) | DRG 872 ==
LOC: NEPE 02:40 → NEDA 12:11 → H1EA 18:52 → HCIS 10-03 14:03
PROVIDERS: ADMIT Obstetrics & Gynecology; ATTEND Obstetrics & Gynecology
PROC: 2W13X6Z Compression of Abdominal Wall using Pressure Dressing (ICD-10-PCS; principal; 2017-09-28)
DX: A41.9 Sepsis, unspecified organism (principal); N17.9 Acute kidney failure, unspecified; L02.211 Cutaneous abscess of abdominal wall; Z68.43 Body mass index [BMI] 50.0-59.9, adult; R00.1 Bradycardia, unspecified; E66.9 Obesity, unspecified; G43.909 Migraine, unspecified, not intractable, without status migrainosus; R07.89 Other chest pain; E87.6 Hypokalemia; R01.1 Cardiac murmur, unspecified; R11.2 Nausea with vomiting, unspecified; M54.9 Dorsalgia, unspecified; R42 Dizziness and giddiness; I10 Essential (primary) hypertension; O86.0 Infection of obstetric surgical wound; F41.0 Panic disorder [episodic paroxysmal anxiety]; I51.7 Cardiomegaly; F43.21 Adjustment disorder with depressed mood; Z98.890 Other specified postprocedural states; Z98.891 History of uterine scar from previous surgery
CPT/HCPCS: 36569; 71045; 74177; 76937; 80048; 80053; 80202; 81001; 83735; 83880; 84100; 84443; 84484; 85025; 85027; 86021; 86038; 87040; 87070; 87077; 87186; 87205; 93005; 93306; 93970; 99285; J0696; J2270; J2405; J2543; J3370; J7030; J7040; J7120; Q9967